=== PATIENT | male | born 1980 | race Hispanic/Latino ===

== ENCOUNTER 2018-04-06 18:18 | Inpatient (IN) | payer OTHER, SELFPAY ==
[2018-04-06] MEDS ORDERED: NA CHLORIDE 0.9% 2,000 ML ONE (19:25)
[2018-04-06 19:51] LABS: Albumin 4.3 g/dL (3.4-5.0); Bilirubin Direct 0.4 mg/dL (0-0.2); Potassium 4.2 mmol/L (3.5-5.1); Protein, Total 9.2 g/dL (6.4-8.2)
[2018-04-06 20:15] LABS: Absolute Lymphocytes (CBC) 1.8 K/uL (0.7-4.9); Absolute Monocytes 0.7 K/uL (0.1-1.3); Absolute Neutrophil 7.1 K/uL (1.8-8.0); Basophils % 0.3 % (0-1.3); Eosinophils % 0.9 % (0-4.4); Hematocrit 46.6 % (39.6-49.0); Lymphocytes % 18.5 % (15.3-44.8); MCH 28.6 pg (27.0-35.0); MCV 84.9 fL (80-100); MPV 10.9 fL (7.6-11.3); Monocytes % 7.6 % (3.3-12.3); RBC Red Blood Cell Count 5.49 M/uL (4.33-5.43)
--- NOTE | 2018-04-06 20:21 | EDPHYS ---
Physician Documentation [facility] Name: James Gibson Age: 37 yrs Sex: Male : 1980 Arrival Date: 04/06/2018 Time: 18:23 Bed 25 Private MD: Unknown, Unknown ED Physician Jairo Beckham HPI: 04/06 19:33 This 37 yrs old Male presents to ER via Ambulatory with complaints of gs Dehydration. 19:33 The patient presents with CRAMPING. Onset: The symptoms/episode began/occurred acutely, gs today. Associated signs and symptoms: Pertinent positives: nausea and vomiting, HEAT EXPOSURE, Pertinent negatives: anorexia. The symptoms are described as crampy. Modifying factors: The symptoms are alleviated by nothing, the symptoms are aggravated by nothing. Severity of pain: At its worst the pain was mild in the emergency department the pain is unchanged. The patient has experienced similar episodes in the past, a few times. The patient has been recently seen by a physician: in the hospital, 2 week(s) ago. Historical: - Allergies: 18:33 No Known Allergies; sv - PMHx: 18:33 Diabetes - IDDM; High Cholesterol; sv - PSHx: 18:33 Cholecystectomy; sv - Immunization history:: Adult Immunizations up to date. - Social history:: Smoking status: Patient/guardian denies using tobacco. - Ebola Screening: : No symptoms or risks identified at this time. ROS: 19:33 All other systems are negative. gs Exam: 19:33 Head/Face: Normocephalic, atraumatic. Eyes: Pupils equal round and reactive to light, gs extra-ocular motions intact. Lids and lashes normal. Conjunctiva and sclera are non-icteric and not injected. Cornea within normal limits. Periorbital areas with no swelling, redness, or edema. ENT: Nares patent. No nasal discharge, no septal abnormalities noted. Tympanic membranes are normal and external auditory canals are clear. Oropharynx with no redness, swelling, or masses, exudates, or evidence of obstruction, uvula midline. Mucous membranes moist. Neck: Trachea midline, no thyromegaly or masses palpated, and no cervical lymphadenopathy. Supple, full range of motion without nuchal rigidity, or vertebral point tenderness. No Meningismus. Chest/axilla: Normal chest wall appearance and motion. Nontender with no deformity. No lesions are appreciated. Respiratory: Lungs have equal breath sounds bilaterally, clear to auscultation and percussion. No rales, rhonchi or wheezes noted. No increased work of breathing, no retractions or nasal flaring. Back: No spinal tenderness. No costovertebral tenderness. Full range of motion. Skin: Warm, dry with normal turgor. Normal color with no rashes, no lesions, and no evidence of cellulitis. MS/ Extremity: Pulses equal, no cyanosis. Neurovascular intact. Full, normal range of motion. Neuro: Awake and alert, GCS 15, oriented to person, place, time, and situation. Cranial nerves II-XII grossly intact. Motor strength 5/5 in all extremities. Sensory grossly intact. Cerebellar exam normal. Normal gait. 19:33 Constitutional: The patient appears alert, awake. 19:33 Cardiovascular: Rate: tachycardic, Rhythm: regular, Pulses: no pulse deficits are appreciated. 19:33 Abdomen/GI: Palpation: mild abdominal tenderness, in all quadrants, rebound tenderness, is not appreciated. Vital Signs: 18:32 BP 125 / 91; Pulse 123; Resp 20; Temp 98.1(O); Pulse Ox 97% on R/A; Height 5 ft. 7 in. sv (170.18 cm); Pain 8/10; 19:42 BP 127 / 91; Pulse 99; Resp 16; Pulse Ox 100% ; kr2 21:37 BP 132 / 84; Pulse 102; Resp 17; Pulse Ox 97% on R/A; kr2 MDM: 18:57 Patient medically screened. 19:33 Differential diagnosis: non-specific abd pain, pancreatitis, DEHYDRATION,RHABDO. Data reviewed: vital signs, nurses notes. 04/06 18:58 Order name: Basic Metabolic Panel; Complete Time: 19:57 04/06 18:58 Order name: CBC with Diff; Complete Time: 20:44 04/06 18:58 Order name: Hepatic Function; Complete Time: 19:57 04/06 18:58 Order name: Lipase; Complete Time: 19:57 04/06 18:58 Order name: CPK; Complete Time: 19:57 04/06 21:37 Order name: Urine Dipstick--Ancillary (enter results) hi 04/06 18:58 Order name: IV Saline Lock; Complete Time: 19:25 04/06 18:58 Order name: Labs collected and sent; Complete Time: 19:26 04/06 18:58 Order name: Urine Dipstick-Ancillary (obtain specimen); Complete Time: 21:41 04/06 20:06 Order name: CT Stone Protocol; Complete Time: 20:44 04/06 21:52 Order name: Urine Dipstick-Ancillary [facility] 04/06 22:04 Order name: Lipid Profile [facility] 04/06 22:16 Order name: LDL, Direct EDMS Administered Medications: 19:25 Drug: NS 0.9% 2000 ml Route: IV; Rate: 1 bolus; Site: left wrist; kr2 21:40 Follow up: Response: No adverse reaction; IV Status: Completed infusion kr2 Disposition: 04/06/18 20:20 Hospitalization ordered by Noah Gotti for Inpatient Admission. Preliminary diagnosis is Acute pancreatitis. - Bed requested for Telemetry/MedSurg (Inpatient). - Status is Inpatient Admission. kr2 - Condition is Stable. - Problem is new. - Symptoms have improved. UTI on Admission? No Signatures: Dispatcher [facility] Shwetha Milan RN RN Debi Page RN RN Jairo Beckham MD MD Eva Esquivel RN RN kr2 Corrections: (The following items were deleted from the chart) 20:26 20:20 Hospitalization Ordered by Noah Gotti MD for Inpatient Admission. Preliminary diagnosis is Acute pancreatitis. Bed requested for Telemetry/MedSurg (Inpatient). Status is Inpatient Admission. Condition is Stable. Problem is new. Symptoms have improved. UTI on Admission? No. 22:18 20:26 04/06/2018 20:20 Hospitalization Ordered by Noah Gotti MD for Inpatient kr2 Admission. Preliminary diagnosis is Acute pancreatitis. Bed requested for Telemetry/MedSurg (Inpatient). Status is Inpatient Admission. Condition is Stable. Problem is new. Symptoms have improved. UTI on Admission? No. mw
--- NOTE | 2018-04-06 20:21 | ER ---
Nurse's Notes [facility] Name: James Gibson Age: 37 yrs Sex: Male : 1980 Arrival Date: 04/06/2018 Time: 18:23 Bed 25 Private MD: Unknown, Unknown Diagnosis: Acute pancreatitis Presentation: 04/06 18:29 Presenting complaint: Patient states: he was discharged from the hospital with sv pancreatitis . Pt was drinking fluids fine and has since been unable to keep any fluids down. c/o cramping everywhere. Transition of care: patient was not received from another setting of care. Onset of symptoms was April 02, 2018. Care prior to arrival: None. 18:29 Method Of Arrival: Ambulatory sv 18:29 Acuity: MARVEL 3 sv 18:47 Risk Assessment: Do you want to hurt yourself or someone else? Patient reports no kr2 desire to harm self or others. Initial Sepsis Screen: Does the patient meet any 2 criteria? No. Patient's initial sepsis screen is negative. Does the patient have a suspected source of infection? No. Patient's initial sepsis screen is negative. Historical: - Allergies: 18:33 No Known Allergies; sv - PMHx: 18:33 Diabetes - IDDM; High Cholesterol; sv - PSHx: 18:33 Cholecystectomy; sv - Immunization history:: Adult Immunizations up to date. - Social history:: Smoking status: Patient/guardian denies using tobacco. - Ebola Screening: : No symptoms or risks identified at this time. Screenin:47 Abuse screen: Denies threats or abuse. Denies injuries from another. Nutritional kr2 screening: No deficits noted. Tuberculosis screening: No symptoms or risk factors identified. Fall Risk None identified. Assessment: 18:35 General: Appears in no apparent distress. uncomfortable, well groomed, well developed, kr2 well nourished, Behavior is calm, cooperative, appropriate for age. Pain: Complains of pain in entire body Pain currently is 6 out of 10 on a pain scale. Quality of pain is described as crampy, Is continuous, Alleviated by rest, Aggravated by increased activity. Neuro: Level of Consciousness is awake, alert, obeys commands, Oriented to person, place, time, situation. Cardiovascular: Heart tones S1 S2 Capillary refill < 3 seconds in bilateral fingers Patient's skin is warm and dry. Respiratory: Airway is patent is compromised Respiratory effort is even, unlabored. GI: Abdomen is flat, non-distended, Bowel sounds present X 4 quads. Abd is soft X 4 quads Abdomen is tender to palpation in epigastric area, right upper quadrant and left upper quadrant Reports intolerance of fluids, intolerance of food, nausea, vomiting. : Denies inability to void. EENT: Oral mucosa is dry. Derm: Skin is intact, with poor turgor Skin is dry, Skin is pale, pink, Skin temperature is warm. Musculoskeletal: Circulation, motion, and sensation intact. Vital Signs: 18:32 BP 125 / 91; Pulse 123; Resp 20; Temp 98.1(O); Pulse Ox 97% on R/A; Height 5 ft. 7 in. sv (170.18 cm); Pain 8/10; 19:42 BP 127 / 91; Pulse 99; Resp 16; Pulse Ox 100% ; kr2 21:37 BP 132 / 84; Pulse 102; Resp 17; Pulse Ox 97% on R/A; kr2 ED Course: 18:23 Patient arrived in ED. mr 18:23 Unknown, Unknown is Private Physician. mr 18:32 Triage completed. sv 18:33 Arm band placed on right wrist. sv 18:38 Jairo Beckham MD is Attending Physician. gs 18:47 Eva Esquivel, KT is Primary Nurse. kr2 18:48 Patient has correct armband on for positive identification. Bed in low position. Call kr2 light in reach. Side rails up X 1. Pulse ox on. NIBP on. Door closed. Warm blanket given. Head of bed elevated. 19:15 Inserted saline lock: 22 gauge in left wrist, using aseptic technique. kr2 20:[address] vr 20:17 CT Stone Protocol In Process Unspecified. EDMS 20:17 CT completed. Patient tolerated procedure well. Patient moved back from CT. nj 20:19 Noah Gotti MD is Hospitalizing Provider. gs 22:17 No provider procedures requiring assistance completed. Patient admitted, IV remains in kr2 place. Administered Medications: 19:25 Drug: NS 0.9% 2000 ml Route: IV; Rate: 1 bolus; Site: left wrist; kr2 21:40 Follow up: Response: No adverse reaction; IV Status: Completed infusion kr2 Outcome: 20:20 Decision to Hospitalize by Provider. 22:17 Admitted to Med/surg accompanied by tech, family with patient, via wheelchair, room kr2 209, with chart, Report called to KT Montgomery 22:17 Condition: stable 22:17 Instructed on the need for admit, Demonstrated understanding of instructions. 22:18 Patient left the ED. kr2 Signatures: Dispatcher [employer] EDShwetha Nunez RN RN sv Rivera, Maria mr Dong, Lorenzo Chase Gregory, MD MD gs Reaves, Karey, RN RN kr2 Corrections: (The following items were deleted from the chart) 18:34 18:32 BP 125 / 91; Pulse 123bpm; Resp 20bpm; Pulse Ox 97% RA; sv sv
--- NOTE | 2018-04-06 20:40 | RAD REPORT ---
EXAM DESCRIPTION: CT - Stone Protocol - 04/06/2018 8:18 pm CLINICAL HISTORY: Abdominal pain, recent hospitalization for pancreatitis COMPARISON: CT study January 24 no imaging related to recent hospitalization which may have been at [facility] facility. TECHNIQUE: Axial [address] imaging of the abdomen and pelvis was performed without IV contrast. No IV contrast was given because of allergy, abnormal renal function, patient refusal or physician re quest. Oral contrast was given. All CT scans are performed using dose optimization technique as appropriate and may include automated exposure control or mA/KV adjustment according to patient size. FINDINGS: No suspicious findings in the lung bases. No pericardial effusion. Liver and spleen show no suspicious finding. Pneumobilia is present without dilatation. Cholecystecto my clips are present. Head and uncinate process of the pancreas are enlarged. No discrete mass identifiable on noncontrast study. Biliary stent is in place and appears to be well positioned. No abscess or pseudocyst confirme d at this time. Peripancreatic congestion and edema are present at the head and uncinate process. A f ew small reactive lymph nodes are seen in the upper abdomen and peripancreatic region. No hydronephrosis or suspicious renal mass. No significant adrenal finding. Isodense renal masses an d pyelonephritis cannot be excluded in the absence of IV contrast. The urinary bladder is without sig nificant finding. Note gastric dilatation or gastric wall thickening. There does appear to be some mild involvement of the duodenal C-loop by the pancreatitis changes. Small bowel and colon are otherwise without acute or significant finding. No free air, free fluid or pneumatosis. No hernia, mass or bulky lymphadenopath y. No suspicious bony findings. IMPRESSION: Mild pancreatitis changes are present. No abscess or pseudocyst identifiable. Biliary stent is in place appearing well positioned. General fullness and enlargement of the uncinate and head of the pancreas are probably pancreatitis r elated rather than mass. Pancreatic assessment is limited in the absence of contrast. No recent imaging available to determine if the pancreatitis changes are progressive, stable or impro ving.
--- NOTE | 2018-04-06 21:34 | P.HP ---
Certification for Inpatient Patient admitted to: Inpatient With expected LOS: >2 Midnights Practitioner: I am a practitioner with admitting privileges, knowledge of patient current condition, hospital course, and medical plan of care. Services: Services provided to patient in accordance with Admission requirements found in Title 42 Section 412.3 of the Code of Federal Regulations Patient History Date of Service: 04/06/18 Reason for admission: recurrent pancreatitis History of Present Illness: Mr Gibson is a 37 years old male with history of DM II on oral hypoglycemics , recurrent episodes of pancreatitis due to hypertriglyceridemia, last admission in [facility] about 2 weeks ago, he states that had an ERCP with a stent placement, however, no biliary stone noted on radiologic test according to him. He was released about 5 days ago, and he was not really feeling completely well. Yesterday he start again with upper abdominal pain, described as cramps, in epigastric area radiated to bilateral upper quadrant. 10 /10 of intensity, associated with nausea and vomiting. He denied fever but has had chills. He states that is compliant with Gemfibrozil treatment. Lab work remarkable for normal WBC count, decreased sodium, chloride and increased creatinine likely secondary to volume depletion. Lipase is 814, CT abd/pelvis consitent with acute pancreatitis without pseudocyst or abscess seen. Allergies No Known Drug Allergies Allergy (Verified 01/28/15 21:17) Unknown Home Medications: Gemfibrozil [Lopid*] 600 mg PO BID #60 tab 02/01/15 Hydrocodone 10/APAP 325 [Rosine 10/325] 1 tab PO Q6H PRN #60 tab 02/01/15 [place]-3 Fatty Acids/Fish Oil [Fish Oil 1,000 mg Softgel] 1 each PO BID #60 capsule 02/01/15 - Past Medical/Surgical History Diabetic: Yes -: niddm -: htn -: pancreatitis -: janet -: ERCP - Family History Mother -: Hypertension - Social History Smoking Status: Former smoker Alcohol use: Yes CD- Drugs: No Caffeine use: Yes Review of Systems 10-point ROS is otherwise unremarkable Physical Examination - Physical Exam General: Alert, In no apparent distress HEENT: Atraumatic, PERRLA, Mucous membr. moist/pink, EOMI, Sclerae nonicteric Neck: Supple, 2+ carotid pulse no bruit, No LAD, Without JVD or thyroid abnormality Respiratory: Clear to auscultation bilaterally, Normal air movement Cardiovascular: Regular rate/rhythm, Normal S1 S2 Gastrointestinal: Hypoactive, Tenderness (upper abdomen) Musculoskeletal: No tenderness Integumentary: No rashes Neurological: Normal speech, Normal strength at 5/5 x4 extr, Normal tone, Normal affect Lymphatics: No axilla or inguinal lymphadenopathy - Studies Laboratory Data (last 24 hrs) 04/06/18 19:20: WBC 9.7, Hgb 15.7, Hct 46.6, Plt Count 357 04/06/18 19:20: Sodium 128 L, Potassium 4.2, BUN 26 H, Creatinine 2.10 H, Glucose 344 H, Total Bilirubin 1.0, AST 34, ALT 51, Alkaline Phosphatase 164 H, Lipase 814 H Assessment and Plan - Problems (Diagnosis) (1) Diabetes mellitus Onset Date: 01/29/15 Current Visit: No Status: Acute Qualifiers: Diabetes mellitus type: type 2 Diabetes mellitus fci insulin use: without fci use Diabetes mellitus complication status: with unspecified complications Qualified Code(s): E11.8 - Type 2 diabetes mellitus with unspecified complications (2) Hypochloremia Onset Date: 01/29/15 Current Visit: No Status: Acute (3) Hyponatremia Onset Date: 01/29/15 Current Visit: No Status: Acute (4) Pancreatitis Onset Date: 01/29/15 Current Visit: No Status: Acute Qualifiers: Chronicity: acute Pancreatitis type: other Acute pancreatitis complication: no infection or necrosis Qualified Code(s): K85.80 - Other acute pancreatitis without necrosis or infection (5) Acute renal injury Current Visit: Yes Status: Acute - Plan The patient will be admitted to the hospital due to acute pancreatitis. Will keep him NPO, start IV fluids, will check triglycerides level, if they are significantly elevated, will transfer the patient to ICU and start insulin drip. Consult Dr Barnes. Will order records from last admission at [facility] to find out about ERCP with stent placement details. Discharge Plan: Home - Advance Directives Does patient have a Living Will: No Does patient have a Durable POA for Healthcare: No - Code Status/Comfort Care Code Status Assessed: Yes Code Status: Full Code
[2018-04-06 21:52] LABS: Urine Blood NEGATIVE (NEG); Urine Glucose 2+ (NEG); Urine Protein 1+ (NEG)
[2018-04-06 22:03] LABS: HDL Cholesterol 28 mg/dL (40-60); LDL Cholesterol, Calculated ND (<130)
[2018-04-06 22:15] LABS: LDL, Direct 86 mg/dL (100-129)
[2018-04-06] MEDS ORDERED: Morphine 2 MG/2 ML SYR IV PRN (22:19)
[2018-04-06] MEDS ORDERED: ACETAMINOPHEN 500 MG TAB PO PRN (22:19)
[2018-04-06] MEDS ORDERED: ONDANSETRON 4 MG/2 ML VIAL IV PRN (22:19)
[2018-04-06 22:34] VITALS: BMI 35.8
[2018-04-06] MEDS: NA CHLORIDE 0.9% 1,000 ML IV SCH (22:55)
[2018-04-06] MEDS: MORPHINE 2 MG/ML SYR IV PRN (22:58)
[2018-04-07] MEDS: INSULIN -REGULAR HUMAN 50 UNIT/0.5 ML ML SQ SCH ×4 (00:26→18:00)
[2018-04-07 04:55] LABS: Absolute Lymphocytes (CBC) 2.3 K/uL (0.7-4.9); Absolute Monocytes 0.6 K/uL (0.1-1.3); Absolute Neutrophil 2.2 K/uL (1.8-8.0); Basophils % 0.7 % (0-1.3); Eosinophils % 2.6 % (0-4.4); Hematocrit 38.8 % (39.6-49.0); Lymphocytes % 43.7 % (15.3-44.8); MCH 29.5 pg (27.0-35.0); MCV 85.3 fL (80-100); MPV 10.3 fL (7.6-11.3); Monocytes % 10.9 % (3.3-12.3); RBC Red Blood Cell Count 4.55 M/uL (4.33-5.43)
[2018-04-07 05:19] LABS: Albumin 3.4 g/dL (3.4-5.0); Bilirubin Total 0.9 mg/dL (0.2-1.0); Potassium 4.5 mmol/L (3.5-5.1); Protein, Total 7.2 g/dL (6.4-8.2)
[2018-04-07] MEDS: NA CHLORIDE 0.9% 1,000 ML IV SCH ×4 (05:52→22:42)
[2018-04-07] MEDS: MORPHINE 2 MG/ML SYR IV PRN ×3 (05:55→22:42)
[2018-04-07] MEDS ORDERED: Magnesium Sulfate 2gm IVPB 2 G/50 ML BAG IV ONE (06:02)
--- NOTE | 2018-04-07 08:40 | RAD REPORT ---
EXAM DESCRIPTION: US - Abdomen Exam Limited - 04/07/2018 8:06 am CLINICAL HISTORY: Abdominal pain. COMPARISON: April 06, 2018 FINDINGS: The liver has a mildly increased echotexture consistent with fatty infiltration. The gallbladder has been removed. A biliary stent is in place. The biliary tree is not dilated. Withi n the region of the pancreatic head is a 4 centimeter hypoechoic mass. IMPRESSION: Mild increased hepatic echotexture consistent with mild fatty infiltration Cholecystectomy with biliary stent in place 4 centimeter hypoechoic mass within the pancreatic head may be inflammatory secondary to pancreatitis . Neoplasm has a similar appearance and followup is recommended
[2018-04-07] MEDS: ENOXAPARIN 40 MG/0.4 ML SQ SCH (09:00)
--- NOTE | 2018-04-07 14:14 | PN ---
Date of Progress Note: 04/07/2018 Subjective: The patient is seen and examine. Chart reviewed and case discussed with RN. The patien t states he is still having significant amount of pain and very much nauseated. Review of Systems: Negative except as above. Medications: Reviewed. Physical Examination: Vital Signs: Temperature 97.3, heart rate 66, blood pressure 122/67, respirations 18, O2 sat 96% on room air. General: Awake, alert, oriented x3. Some mild distress due to pain. Ill-appearing male. CV: S1, S2. No murmurs. Regular rate and rhythm. Peripheral pulses present. Respiratory: Clear to auscultation bilaterally. No wheezing. No stridor. No use of accessory musc les. Gastrointestinal: Abdomen is soft. Tenderness to palpation in the epigastric region in the right up per quadrant. No guarding or rigidity. No palpable masses. Bowel sounds are positive. Extremities: No clubbing, cyanosis, edema. Neurologic: Nonfocal. Laboratory Data: Sodium 137, potassium 4.5, chloride 100, CO2 29, BUN 18, creatinine 1.2, glucose 21 5, calcium 9.1, magnesium 1.5, total bilirubin 0.9, albumin 3.4, triglycerides 866. WBC 5.2, H and H 13.4 and 38.8, platelets 275. Abdominal ultrasound shows mild increased hepatic echotexture consist ent with mild fatty infiltration, cholecystectomy with biliary stent in place, 4 cm hypoechoic mass w ithin the pancreatic head may be inflammatory secondary to pancreatitis. Followup is recommended. Assessment And Plan: A 37-year-old male with: 1.Acute pancreatitis, likely related to elevated triglycerides and alcohol use. The patient was rec ently at a facility in [place], had an ERCP with stent placement. We will obtain GI consultation. 2.Diabetes mellitus type 2 without long-term use of insulin with hyperglycemia. We will continue sl iding scale insulin and continue Accu-Cheks. 3.Hyponatremia, resolved. We will continue to monitor. 4.Hypokalemia, improving. Continue to monitor. 5.Acute kidney injury, resolved with IV hydration. We will continue IV fluids. 6.Gastrointestinal and deep venous thrombosis prophylaxis with PPI and Lovenox. Plan: N.p.o., supportive treatment, pain control, follow up with GI recommendations. SA/MODL Voice ID: [id number] Report ID: [id number]
[2018-04-07] MEDS ORDERED: D50W 25 GM/50 ML SYRINGE IV PRN (18:51)
[2018-04-07] MEDS ORDERED: GLUCAGON 1 MG/VIAL IM PRN (18:51)
[2018-04-07] MEDS ORDERED: MEPERIDINE HCL 25 MG/0.5 ML IV ONE (19:00)
[2018-04-07] MEDS ORDERED: MAGNESIUM SULFATE 1 gm IVPB 1 GM/100 ML BAG IV ONE (20:00)
[2018-04-07] MEDS: FENOFIBRATE 160 MG TAB PO SCH (20:07)
[2018-04-08] MEDS: NA CHLORIDE 0.9% 1,000 ML IV SCH ×3 (05:12→22:19)
[2018-04-08] MEDS: MORPHINE 2 MG/ML SYR IV PRN ×2 (05:12→10:46)
[2018-04-08 05:26] LABS: BUN Blood Urea Nitrogen 12 mg/dL (7-18); Bicarbonate 31 mmol/L (21-32); Glucose Level 175 mg/dL (74-106); Potassium 4.2 mmol/L (3.5-5.1); Sodium Level 137 mmol/L (136-145)
[2018-04-08 05:27] LABS: Magnesium 1.7 mg/dL (1.8-2.4)
[2018-04-08] MEDS: INSULIN -REGULAR HUMAN 50 UNIT/0.5 ML ML SQ SCH ×4 (05:46→18:00)
[2018-04-08] MEDS ORDERED: MAGNESIUM SULFATE 1 gm IVPB 1 GM/100 ML BAG IV ONE (06:00)
[2018-04-08] MEDS: ENOXAPARIN 40 MG/0.4 ML SQ SCH (08:40)
[2018-04-08 09:08] LABS: Amylase Level 64 U/L (25-115); Lipase 437 U/L (73-393)
--- NOTE | 2018-04-08 11:01 | PN ---
Date of Progress Note: 04/08/2018 Subjective: The patient is seen and examined. Chart reviewed and case discussed with RN. The patie nt states his pain is better, however, not completely resolved. No nausea or vomiting. Review of Systems: Negative except as above. Medications: Reviewed. Physical Examination: Vital Signs: Temperature 97.8, heart rate 56, blood pressure 120/65, respirations 18, O2 96% on room air. General: Awake, alert, oriented x3. Some mild distress. Obese male, BMI 34.8. CV: S1, S2. No murmurs. Regular rate and rhythm. Peripheral pulses present. Respiratory: Clear to auscultation bilaterally. No wheezing. Gastrointestinal: Abdomen is soft. Mild tenderness to palpation in the epigastric region. No rebou nd or guarding. No rigidity. Bowel sounds positive. Extremities: No clubbing, cyanosis, edema. Neurologic: Nonfocal. Laboratory Data: Sodium 137, potassium 4.2, chloride 102, CO2 31, BUN 12, creatinine 0.9, glucose 17 5, calcium 8.7, magnesium 1.7. Amylase and lipase pending. Abdominal ultrasound shows mild increase d hepatic echotexture consistent with mild fatty infiltration, cholecystectomy with biliary stent in place, 4 cm hypoechoic mass within the pancreatic head, may be inflammatory secondary to pancreatitis . Assessment And Plan: A 37-year-old male with: 1.Acute pancreatitis secondary to elevated triglycerides and alcohol use. Recent ERCP at different facility with stent placement. Awaiting GI recommendations. 2.Diabetes mellitus type 2 with long-term use of insulin with hyperglycemia. We will continue slidi ng scale insulin. 3.Hypomagnesemia. We will replace and monitor. 4.Obesity, BMI 34.8, counseled. 5.Possible pancreatic mass 4 cm, may be inflammatory. We will continue to monitor. Follow up with GI recommendations. /FREDDY Voice ID: [id number] Report ID: [id number]
[2018-04-08] MEDS: MEPERIDINE HCL 25 MG/0.5 ML IV PRN ×3 (14:03→22:07)
[2018-04-08] MEDS: FENOFIBRATE 160 MG TAB PO SCH (22:08)
[2018-04-08 23:07] VITALS: O2SAT 98
[2018-04-09] MEDS: MEPERIDINE HCL 25 MG/0.5 ML IV PRN ×4 (02:58→16:51)
[2018-04-09] MEDS: NA CHLORIDE 0.9% 1,000 ML IV SCH ×4 (02:58→14:19)
[2018-04-09] MEDS: INSULIN -REGULAR HUMAN 50 UNIT/0.5 ML ML SQ SCH ×4 (06:00→16:49)
[2018-04-09 06:32] LABS: Amylase Level 61 U/L (25-115); BUN Blood Urea Nitrogen 7 mg/dL (7-18); Bicarbonate 28 mmol/L (21-32); Glucose Level 178 mg/dL (74-106); Lipase 350 U/L (73-393); Potassium 4.4 mmol/L (3.5-5.1); Sodium Level 140 mmol/L (136-145)
[2018-04-09 06:38] LABS: Magnesium 1.4 mg/dL (1.8-2.4)
[2018-04-09] MEDS ORDERED: Magnesium Sulfate 2gm IVPB 2 G/50 ML BAG IV ONE (08:00)
[2018-04-09] MEDS: ENOXAPARIN 40 MG/0.4 ML SQ SCH (09:14)
[2018-04-09 18:24] VITALS: BP 122/76; TEMP 98.6
--- NOTE | 2018-04-10 07:07 | DS ---
Date of Discharge: 04/09/2018 Consultants: Lázaro Dodge MD with GI. Admitting Diagnoses: 1.Acute pancreatitis, recurrent, secondary to alcohol and elevated triglycerides. 2.Obesity, BMI of 34.8. 3.Diabetes mellitus type 2 without long-term use of insulin. 4.Hypochloremia. 5.Hyponatremia. 6.Acute kidney injury. Discharge Diagnoses: 1.Acute pancreatitis, secondary to alcohol and elevated triglycerides. The patient had recent ERCP with stent placement. 2.Diabetes mellitus type 2 with long-term use of insulin with hyperglycemia. 3.Hypomagnesemia, replaced. 4.Hypochloremia, corrected. 5.Obesity, BMI of 34.8. 6.Fatty infiltration of the liver, counseled. 7.Acute kidney injury, resolved. 8.Hyponatremia, resolved. 9.Hyperlipidemia. 10.Statin. Hospital Course: The patient is a 37-year-old male with history of diabetes, comes in with recurrent pancreatitis. The patient was found to have hypertriglyceridemia, history of alcohol use, had recen t stent placement, and after ERCP, CT scan was done which showed some pancreatic inflammation along w ith some congestion edema around the head of the uncinate process, was also found to have fatty liver disease. The patient was kept n.p.o., started on IV fluids. His pain was controlled with IV medica tions. Workup showed triglyceride levels of 866. His lipase was elevated at 814. The patient slowl y improved. His pain resolved. He was started on a clear liquid diet, which was able to resolve. Vanessa mendez was then eventually able to tolerate a GI soft diet. He was seen by GI who did not feel that the u ltrasound finding of mass was accurate. A CT scan, which is much more reliable in imaging for the [facility], does not show any masses, however, we will recommend repeat imaging study in 36 months. The patient otherwise had improvement in his electrolytes. His magnesium, potassium, chloride, sodium we re replaced. He was counseled on his fatty liver disease, which can lead to liver cirrhosis in 20 un clear if untreated. He is to have diet modification. The patient also needs to follow up with GI do ctor at [place] or here locally for removal of the biliary stent. The patient was then cleared for discharge. He was sent home in a fair condition. Activity: As tolerated. Medications: As per medication reconciliation list. Followup: Follow up with primary care physician in 2-3 days. Follow up with GI doctor in 2 weeks. Return to ER for worsening condition. Physical Examination: General: Awake, alert, and oriented x3. No acute distress. Obese male. CV: S1, S2. No murmurs. Gastrointestinal: Abdomen is soft, nontender, and nondistended. Positive bowel sounds. Respiratory: Moving air well bilaterally. No wheezing. Abdomen: Soft, nontender, and nondistended. Positive bowel sounds. Extremities: No clubbing, cyanosis, or edema. Neurologic: Nonfocal. Total time spent discharging the patient was 37 minutes. /FREDDY Voice ID: [id number] Report ID: [id number]
== END 2018-04-09 18:13 | disposition home or self-care (01) | DRG 439 ==
LOC: ER 18:18 → ERHOLD 20:22 → 2ND 21:31
PROVIDERS: ADMIT Internal Medicine; ATTEND Internal Medicine
DX: K85.20 Alcohol induced acute pancreatitis without necrosis or infection (principal); N17.9 Acute kidney failure, unspecified; E87.1 Hypo-osmolality and hyponatremia; E83.42 Hypomagnesemia; E11.65 Type 2 diabetes mellitus with hyperglycemia; Z79.4 Long term (current) use of insulin; E87.8 Other disorders of electrolyte and fluid balance, not elsewhere classified; E66.9 Obesity, unspecified; Z68.34 Body mass index [BMI] 34.0-34.9, adult; K76.0 Fatty (change of) liver, not elsewhere classified; E78.5 Hyperlipidemia, unspecified; E78.1 Pure hyperglyceridemia
CPT/HCPCS: 36415; 74176; 76377; 76705; 80048; 80053; 80061; 80076; 81003; 82150; 82550; 82962; 83690; 83735; 85025; 87493; 96360; 96361; 99285; J1650; J2175; J2270; J3475; J7030

== ENCOUNTER 2018-04-12 07:06 | Emergency (ER) | payer OTHER ==
[2018-04-12] MEDS ORDERED: ONDANSETRON 4 MG/2 ML VIAL ONE (07:55)
[2018-04-12] MEDS ORDERED: NA CHLORIDE 0.9% 1,000 ML ONE (07:55)
[2018-04-12] MEDS ORDERED: MORPHINE 4 MG/ML SYR ONE (07:55)
[2018-04-12 08:00] LABS: Absolute Monocytes 0.9 K/uL (0.1-1.3); Absolute Neutrophil 7.9 K/uL (1.8-8.0); Basophils % 0.2 % (0-1.3); Eosinophils % 0.5 % (0-4.4); Hematocrit 37.7 % (39.6-49.0); Lymphocytes % 10.5 % (15.3-44.8); MCH 28.5 pg (27.0-35.0); MCV 85.5 fL (80-100); MPV 11.6 fL (7.6-11.3); Monocytes % 8.7 % (3.3-12.3); RBC Red Blood Cell Count 4.41 M/uL (4.33-5.43)
[2018-04-12 08:16] LABS: Urine Amorphous Sediment 1+ /HPF (NONE SEEN); Urine Bacteria <20 /HPF (NONE SEEN); Urine Coarse Granular Casts FEW /LPF (NONE SEEN); Urine Culture Reflex Order REFLEXED; Urine Mucus 1+ /HPF (NONE SEEN); Urine RBC <5 /HPF (NONE SEEN)
[2018-04-12 08:17] LABS: Urine Blood NEGATIVE (NEG); Urine Glucose TRACE (NEG); Urine Protein 2+ (NEG); Urine Specific Gravity >1.030 (1.005-1.030); Urine pH 5.5 (5.0-7.0)
[2018-04-12 08:23] LABS: ALT/SGPT 30 U/L (12-78); AST/SGOT 25 U/L (15-37); Alkaline Phosphatase 224 U/L (45-117); Amylase Level 46 U/L (25-115); BUN Blood Urea Nitrogen 8 mg/dL (7-18); Bicarbonate 27 mmol/L (21-32); Bilirubin Direct 0.7 mg/dL (0-0.2); Bilirubin Total 1.5 mg/dL (0.2-1.0); Glucose Level 187 mg/dL (74-106); Lipase 199 U/L (73-393); Potassium 3.7 mmol/L (3.5-5.1); Protein, Total 7.9 g/dL (6.4-8.2); Sodium Level 135 mmol/L (136-145)
--- NOTE | 2018-04-12 08:48 | RAD REPORT ---
EXAM DESCRIPTION: CT - Abdomen Pelvis W Contrast - 04/12/2018 8:15 am CLINICAL HISTORY: Abdominal pain, prior cholecystectomy, recent hospitalization for pancreatitis COMPARISON: CT April 06 TECHNIQUE: Biphasic, helical CT imaging of the abdomen and pelvis was performed following 100 ml non -ionic IV contrast. No oral contrast administered. All CT scans are performed using dose optimization technique as appropriate and may include automated exposure control or mA/KV adjustment according to patient size. FINDINGS: No suspicious findings in the lung bases. Liver and spleen show no acute parenchymal findings. Body and tail of the pancreas show no significan t finding or interval change. The head and uncinate process of the pancreas are abnormal with enlarge ment, edema and now presents of multiple clustered hypodense masses. This is approximately 6 x 5 cm a nd collective size. Biliary stent is in place. No intrahepatic biliary tree dilatation seen. The conf luence of the biliary tree into the common hepatic duct is mildly prominent but not clearly different from the comparison. Biliary stent remains in place. The duodenal C-loop is difficult to distinguish from this pancreatic head complex mass. Of the reactive lymph nodes are present in the adjacent john pancreatic fatty tissues. Gallbladder is absent. Symmetric renal function is seen with no hydronephrosis or suspicious renal mass. No acute renal pare nchymal process. Contracted urinary bladder shows no suspicious findings. No gastric dilatation. [place] of the gastric antrum are mildly prominent. Ileum and jejunum show no ac [place] findings. No active colon process. No free air or pneumatosis. No surgically emergent finding. No hernia, mass or bulky lymphadenopathy . No adrenal abnormality. No suspicious bony findings. IMPRESSION: Pancreatic head and uncinate process are abnormal. There are remnant pancreatitis findin gs present. A 6 x 5 cm area of diminished attenuation has developed in the pancreatic head region believed to be a collection of multiple pancreatic pseudocysts. Duodenal C-loop is secondarily involved with possible minimal secondary involvement of the gastric an trum. There is no good tissue plane separation between the pancreatitis/ pseudo cyst complex and the duodenum. Biliary stent is unchanged in position. Minimal prominence of the biliary tree at the confluence of c ommon hepatic duct and intrahepatic branches is not substantially different but can be monitored for progression.
[2018-04-12] MEDS ORDERED: FENTANYL CITR 100 MCG/2 ML ONE (10:30)
--- NOTE | 2018-04-12 10:59 | ER ---
Nurse's Notes [facility] Name: James Gibson Age: 37 yrs Sex: Male : 1980 Arrival Date: 04/12/2018 Time: 07:09 Bed 20 Private MD: Unknown, Unknown Diagnosis: Epigastric pain Presentation: 04/12 07:19 Presenting complaint: Patient states: was admitted to hospital on 04-06-18 for iw pancreatitis, was discharged on 04-09-18, was still having pain, still having pain now, denies n/v/d. Transition of care: patient was not received from another setting of care. Onset of symptoms was April 06, 2018. Risk Assessment: Do you want to hurt yourself or someone else? Patient reports no desire to harm self or others. Initial Sepsis Screen: Does the patient meet any 2 criteria? No. Patient's initial sepsis screen is negative. Does the patient have a suspected source of infection? No. Patient's initial sepsis screen is negative. Care prior to arrival: None. 07:19 Method Of Arrival: Ambulatory iw 07:19 Acuity: MARVEL 3 iw Historical: - Allergies: 07:21 NKA; iw - PMHx: 07:21 Diabetes - IDDM; High Cholesterol; Pancreatitis; iw - PSHx: 07:21 Cholecystectomy; iw - Immunization history:: Adult Immunizations up to date. - Social history:: Smoking status: Patient/guardian denies using tobacco. - Ebola Screening: : No symptoms or risks identified at this time. Screenin:18 Abuse screen: Denies threats or abuse. Denies injuries from another. Nutritional jl7 screening: No deficits noted. Tuberculosis screening: No symptoms or risk factors identified. Fall Risk IV access (20 points). Total Hale Fall Scale indicates No Risk (0-24 pts). Assessment: 07:18 General: Appears in no apparent distress. uncomfortable, Behavior is calm, cooperative, jl7 appropriate for age. Pain: Complains of pain in right upper quadrant Pain does not radiate. Pain currently is 9 out of 10 on a pain scale. Quality of pain is described as "Pain" Pain began "It never quit hurting from when I was admitted." Is continuous. Neuro: Level of Consciousness is awake, alert, obeys commands, Oriented to person, place, time, situation. Cardiovascular: Patient's skin is warm and dry. Respiratory: Airway is patent Respiratory effort is even, unlabored, Respiratory pattern is regular, symmetrical. GI: Last BM was April 08, 2018. Bowel sounds present X 4 quads. Abd is soft X 4 quads Abd is non tender in left upper quadrant, right lower quadrant and left lower quadrant Abdomen is tender to palpation in right upper quadrant. : No signs and/or symptoms were reported regarding the genitourinary system. EENT: No signs and/or symptoms were reported regarding the EENT system. Derm: Skin is pink, warm \\T\\ dry. Musculoskeletal: No signs and/or symptoms reported regarding the musculoskeletal system. 07:24 Reassessment: Pt states "The last time this happened and the doctor sent me home while jl7 I was still hurting my took me to another hospital and they said it was my liver. I think that is what's going on this time. I think it's my liver and not my pancreas." Pt denies N/V/D, pt reports being able to eat normally without discomfort. 08:30 Reassessment: No changes from previously documented assessment. Patient and/or family jl7 updated on plan of care and expected duration. Pain level reassessed. Patient is alert, oriented x 3, equal unlabored respirations, skin warm/dry/pink. 09:30 Reassessment: Patient and/or family updated on plan of care and expected duration. Pain jl7 level reassessed. Patient is alert, oriented x 3, equal unlabored respirations, skin warm/dry/pink. 10:25 Reassessment: Pt c/o increased pain, rated 10/10, provider notified, see MAR for orders.jl7 Vital Signs: 07:21 BP 134 / 79; Pulse 110; Resp 18 S; Temp 98.7(O); Pulse Ox 96% on R/A; Weight 102.06 kg; iw Height 5 ft. 6 in. (167.64 cm); Pain 9/10; 08:30 BP 115 / 61; Pulse 99; Resp 16; Pulse Ox 97% ; Pain 9/10; jl7 10:30 BP 120 / 56; Pulse 81; Resp 16; Pulse Ox 96% ; Pain 10/10; jl7 11:00 BP 116 / 65; Pulse 80; Resp 16; Pulse Ox 97% ; Pain 5/10; jl7 11:00 Pain 5/10; jl7 07:21 Body Mass Index 36.32 (102.06 kg, 167.64 cm) ED Course: 07:09 Patient arrived in ED. mr 07:09 Unknown, Unknown is Private Physician. mr 07:16 Alexander Barnes PA is PHCP. jmm 07:16 Bhavesh Mack MD is Attending Physician. jmm 07:18 Patient has correct armband on for positive identification. Placed in gown. Bed in low jl7 position. Call light in reach. Side rails up X 1. Pulse ox on. NIBP on. Warm blanket given. 07:21 Triage completed. iw 07:21 Arm band placed on. iw 07:24 Jose L Aponte, KT is Primary Nurse. jl7 07:46 Initial lab(s) drawn, by me, sent to lab. Urine collected: clean catch specimen, clear, jl7 kianna colored. Inserted saline lock: 20 gauge in right antecubital area, using aseptic technique. Blood collected. 08:[address] via wheelchair. sj 08:14 CT Abd/Pelvis - W/Contrast In Process Unspecified. EDMS 08:15 CT completed. Patient tolerated procedure well. Patient moved back from CT. sj 10:58 Adams Barnes MD is Referral Physician. jmm 11:04 No provider procedures requiring assistance completed. IV discontinued, intact, jl7 bleeding controlled, No redness/swelling at site. Pressure dressing applied. Administered Medications: 08:37 Drug: NS 0.9% 1000 ml Route: IV; Rate: 1 bolus; Site: right antecubital; jl7 09:45 Follow up: Response: No adverse reaction; IV Status: Completed infusion jl7 08:38 Drug: Zofran 4 mg Route: IVP; Site: right antecubital; jl7 09:15 Follow up: Response: No adverse reaction jl7 08:40 Drug: morphine 4 mg Route: IVP; Site: right antecubital; jl7 09:15 Follow up: Response: No adverse reaction; Other; Pain unchanged, pt states "Only jl7 dilaudid has helped in the past." Explained to pt that we are on a dilaudid shortage, pt verbalized understanding. 10:32 Drug: fentaNYL (PF) 50 mcg Route: IVP; Site: right antecubital; jl7 11:00 Follow up: Pain 5/10; Response: No adverse reaction; Pain is decreased jl7 Outcome: 10:59 Discharge ordered by MD. harry 11:04 Discharged to home ambulatory. jl7 11:04 Condition: stable 11:04 Discharge instructions given to patient, Instructed on discharge instructions, follow up and referral plans. medication usage, Demonstrated understanding of instructions, follow-up care, medications, Prescriptions given X 2. 11:06 Patient left the ED. jl7 Signatures: Dispatcher [employer] EDMS Alexander Barnes PA PA jmm Rivera, Maria mr Rios, Corazon Hernandez RN RN iw Leal, Jahala, RN RN jl7 Corrections: (The following items were deleted from the chart) 11:05 11:05 Pain 5/10 Adult; Response: No adverse reaction; Pain is decreased jl7 jl7
--- NOTE | 2018-04-12 10:59 | EDPHYS ---
Physician Documentation [facility] Name: James Gibson Age: 37 yrs Sex: Male : 1980 Arrival Date: 04/12/2018 Time: 07:09 Bed 20 Private MD: Unknown, Unknown ED Physician Bhavesh Mack HPI: 04/12 07:29 This 37 yrs old Male presents to ER via Ambulatory with complaints of jmm Abdominal Pain. 07:29 The patient presents with abdominal pain in the epigastric area. Onset: The jmm symptoms/episode began/occurred gradually, 5 day(s) ago. The symptoms do not radiate. Associated signs and symptoms: Pertinent negatives: nausea and vomiting, diarrhea, fever. The symptoms are described as achy. This is a 37 year old male with a history of DM, HLP, and pancreatitis that presents to the ED with ongoing epigastric abdominal pain. The patient states that he was discharged from the hospital 3 days ago and states that he still has ongoing abdominal pain. Surgical history includes cholecystectomy. . Historical: - Allergies: 07:21 NKA; iw - PMHx: 07:21 Diabetes - IDDM; High Cholesterol; Pancreatitis; iw - PSHx: 07:21 Cholecystectomy; iw - Immunization history:: Adult Immunizations up to date. - Social history:: Smoking status: Patient/guardian denies using tobacco. - Ebola Screening: : No symptoms or risks identified at this time. ROS: 07:29 Constitutional: Negative for fever. jmm 07:29 Abdomen/GI: Positive for abdominal pain, nausea, Negative for vomiting, diarrhea. 07:29 Back: Negative for radiated pain. 07:29 All other systems are negative. Exam: 07:29 Head/Face: atraumatic. jmm 07:29 Constitutional: The patient appears in no acute distress, alert, awake. 07:29 Eyes: Extraocular movements: intact throughout. 07:29 Neck: ROM/movement: is normal. 07:29 Cardiovascular: Rate: normal, Rhythm: regular. 07:29 Respiratory: the patient does not display signs of respiratory distress, Respirations: normal, Breath sounds: are clear throughout. 07:29 Abdomen/GI: Inspection: abdomen appears normal, Bowel sounds: normal, Palpation: soft, mild abdominal tenderness, in the right upper quadrant and left upper quadrant. 07:29 Musculoskeletal/extremity: ROM: intact in all extremities. 07:29 Skin: Appearance: Color: normal in color. 07:29 Neuro: Orientation: is normal, Mentation: is normal, Memory: is normal. 07:29 Psych: Behavior/mood is pleasant, cooperative. Vital Signs: 07:21 BP 134 / 79; Pulse 110; Resp 18 S; Temp 98.7(O); Pulse Ox 96% on R/A; Weight 102.06 kg; iw Height 5 ft. 6 in. (167.64 cm); Pain 9/10; 08:30 BP 115 / 61; Pulse 99; Resp 16; Pulse Ox 97% ; Pain 9/10; jl7 10:30 BP 120 / 56; Pulse 81; Resp 16; Pulse Ox 96% ; Pain 10/10; jl7 11:00 BP 116 / 65; Pulse 80; Resp 16; Pulse Ox 97% ; Pain 5/10; jl7 11:00 Pain 5/10; jl7 07:21 Body Mass Index 36.32 (102.06 kg, 167.64 cm) iw MDM: 07:23 Patient medically screened. [facility] 09:18 Data reviewed: vital signs, nurses notes, lab test result(s), radiologic studies, CT [facility] scan. 10:56 Counseling: I had a detailed discussion with the patient and/or guardian regarding: the [facility] historical points, exam findings, and any diagnostic results supporting the discharge/admit diagnosis, lab results, radiology results, the need for outpatient follow up, to return to the emergency department if symptoms worsen or persist or if there are any questions or concerns that arise at home. Response to treatment: the patient's symptoms have markedly improved after treatment. ED course: Patient states he pain is relieved in the ED. Patient is advised of the need to follow up with GI for further evaluation. Patient advised to return to the ED if he develops increased pain, vomiting, fever, or any other concerning symptoms. Patient understood and agrees with the plan of care. . 04/12 07:24 Order name: Amylase, Serum [facility] 04/12 07:24 Order name: Basic Metabolic Panel [facility] 04/12 07:24 Order name: CBC with Diff [facility] 04/12 07:24 Order name: Creatinine for Radiology; Complete Time: 08:32 [facility] 04/12 07:24 Order name: Hepatic Function [facility] 04/12 07:24 Order name: Lipase; Complete Time: 08:32 jmm 04/12 07:24 Order name: Urine Microscopic Only; Complete Time: 08:17 jmm 04/12 07:25 Order name: Amylase Level; Complete Time: 08:32 EDMS 04/12 07:25 Order name: Basic Metabolic Panel; Complete Time: 08:32 EDMS 04/12 07:25 Order name: CBC with Automated Diff; Complete Time: 08:02 EDMS 04/12 07:25 Order name: Liver (Hepatic) Function; Complete Time: 08:32 EDMS 04/12 07:57 Order name: Urine Dipstick--Ancillary (enter results) ag 04/12 07:58 Order name: Urine Dipstick-Ancillary; Complete Time: 08:17 EDMS 04/12 08:17 Order name: Urine Culture [facility] 04/12 07:24 Order name: IV Saline Lock; Complete Time: 08:07 [facility] 04/12 07:24 Order name: Labs collected and sent; Complete Time: 08:07 [facility] 04/12 07:24 Order name: Urine Dipstick-Ancillary (obtain specimen); Complete Time: 08:07 [facility] 04/12 07:36 Order name: CT Abd/Pelvis - W/Contrast; Complete Time: 08:50 jmm Administered Medications: 08:37 Drug: NS 0.9% 1000 ml Route: IV; Rate: 1 bolus; Site: right antecubital; jl7 09:45 Follow up: Response: No adverse reaction; IV Status: Completed infusion jl7 08:38 Drug: Zofran 4 mg Route: IVP; Site: right antecubital; jl7 09:15 Follow up: Response: No adverse reaction jl7 08:40 Drug: morphine 4 mg Route: IVP; Site: right antecubital; jl7 09:15 Follow up: Response: No adverse reaction; Other; Pain unchanged, pt states "Only jl7 dilaudid has helped in the past." Explained to pt that we are on a dilaudid shortage, pt verbalized understanding. 10:32 Drug: fentaNYL (PF) 50 mcg Route: IVP; Site: right antecubital; jl7 11:00 Follow up: Pain 5/10; Response: No adverse reaction; Pain is decreased jl7 Disposition: 04/12/18 10:59 Discharged to Home. Impression: Epigastric pain. - Condition is Stable. - Discharge Instructions: Abdominal Pain, Adult. - Prescriptions for Tylenol- Codeine #4 300-60 mg Oral Tablet - take 1 tablet by ORAL route every 6 hours As needed; 12 tablet. Zofran 4 mg Oral Tablet - take 1 tablet by ORAL route every 12 hours As needed; 20 tablet. - Medication Reconciliation Form, Thank You Letter, Antibiotic Education, Prescription Opioid Use form. - Follow up: Adams Barnes MD; When: 2 - 3 days; Reason: Continuance of care. Addendum: 04/13/2018 15:54 Co-signature as Attending Physician, Bhavesh Mack MD Available for consultation at p s1 all times.. Signatures: Dispatcher [employer] EDMS Alexander Barnes PA PA jmm Williams, Irene, RN RN Jose L Andres RN RN jl7 Bhavesh Mack MD MD ps1 Corrections: (The following items were deleted from the chart) 04/12 11:06 10:59 04/12/2018 10:59 Discharged to Home. Impression: Epigastric pain. Condition is jl7 Stable. Forms are Medication Reconciliation Form, Thank You Letter, Antibiotic Education, Prescription Opioid Use. Follow up: Adams Barnes; When: 2 - 3 days; Reason: Continuance of care. [email or web address]
[2018-04-12 11:10] VITALS: TEMP 98.7
[2018-04-12 11:14] VITALS: BP 116/65; O2SAT 97
== END 2018-04-12 11:06 | disposition home or self-care (01) ==
LOC: ER 07:06
DX: R10.13 Epigastric pain (principal); E11.9 Type 2 diabetes mellitus without complications
CPT/HCPCS: 36415; 74177; 80048; 80076; 81003; 81015; 82150; 83690; 85025; 87086; 87088; 96361; 96374; 96375; 99284; J2405; J3010; J7030; Q9967

== ENCOUNTER 2020-04-01 13:22 | Inpatient (IN) | payer OTHER, SELFPAY ==
--- OUTSIDE RECORDS SUMMARY | 2020-04-01 13:25 | XMS REPORT | Continuity of Care Document ---
:1980 Author Organization [facility] Care Team Providers Name Role Phone [facility] Unavailable Un available Problems Problem Status Onset Classification Date Comments Sourc e Date Reported Calculus of bile 12/12/2018 [facility] duct without 8 Medical cholangitis or Cente r cholecystitis without obstruction EDDC-PANCREATITIS Active [facility] / BILE DUCT 8 Medical STRITURE Center Personal history 12/12/2018 [facility] of nicotine Medical dependence Center Gastro-esophageal 12/12/2018 [facility] reflux disease Medic al without Center esophagitis Type 2 diabetes 12/12/2018 [facility] mellitus without Med ical complications Center Obesity, 12/12/2018 [facility] unspecified Medical Center Body mass index 12/12/2018 [facility] (BMI) 35.0-35.9, Med ical adult Center Hyperlipidemia, 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/2018 [facility]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/12/2018 [facility] (current) use of Med ical oral hypoglycemic Ce nter drugs Medications No Data Provided for This Section Allergies, Adverse Reactions, Alerts No Known Medication Allergies Immunizations No Data Provided for This Section Results No Data Provided for This Section Pathology Reports No Data Provided for This Section Diagnostic Reports Report Value Date Source ERCP Diagnostic DX EXAM: FLUOROSCOPY ERCP 05/25/2018 [facility] DATE: 05/25/2018 11:[address] INDICATION: bile duct stones/stent removal ADDITIONAL INFORMATION: Procedure note: 'A stent was removed from the bile duct and stones versus out of the bile duct with a balloon catheter. A dilated balloon catheter was then used to dilate the distal bile duct.' COMPARISON: None. TECHNIQUE: Fluoroscopic images were provided for interpretation. FLUOROSCOPY TIME: 1.8 FINDINGS: The hepatic biliary ducts are mildly dilated, le ft greater than right. ERCP performed by GI service. IMPRESSION: * Biliary stent removal. * Balloon sweep of biliary stones. * Dilation catheter was used to dilate the dist al bile duct. * Please see ERCP report by gastrointestinal for more details and recommendations. Consultation Notes No Data Provided for This Section Discharge Summaries No Data Provided for This Section History and Physicals No Data Provided for This Section Vital Signs No Data Provided for This Section Encounters Location Location Encounter Encounter Reason Attending ADM DC Stat us Source Details Type Number For Provider Date Date Visit [id number] [place] [facility] 05[facility]25 [facility] Procedures No Data Provided for This Section Assessment and Plan No Data Provided for This Section Plan of Care No Data Provided for This Section Social History Social History Date Source No data available for this 05/25/2018 [facility] section No data available for this 05/13/2018 [facility] section Family History No Data Provided for This Section Advance Directives No Data Provided for This Section Functional Status No Data Provided for This Section
--- OUTSIDE RECORDS SUMMARY | 2020-04-01 13:25 | XMS REPORT | Clinical Summary ---
:1980 Author Organization [facility] Address [address] [place] [address] Care Team Providers Name Role Phone Unavailable Primary Care Provider Unavailable Allergies No Known Allergies Medications Not on file Active Problems Not on file Social History Tobacco Use Types Packs/Day Years Used Date Former Smoker Smokeless Tobacco: Never Used Comments: quit 4 weeks ago Alcohol Use Drinks/Week oz/Week Comments No quit 4weeks ago Sex Assigned at Date Recorded Not on file Job Start Date Occupation Industry Not on file Not on file Not on file Travel History Travel Start Travel End No recent travel history available. Last Filed Vital Signs Not on file Plan of Treatment Health Maintenance Due Date Last Done Comments INFLUENZA VACCINE 05/12/2020 Results Not on fileafter 04/01/2019 Advance Directives For more information, please contact: [phone] Type Date Recorded Patient Spraying Machine Operator Explanati on Advance Directives, Living Will and Medical Power of Communication Skills Instructor
[2020-04-01] MEDS ORDERED: LIDOCAINE VISCOUS 2% SOLN 15 ML UDC ONE (13:55)
[2020-04-01] MEDS ORDERED: MORPHINE 4 MG/ML SYR ONE (13:55)
[2020-04-01] MEDS ORDERED: NA CHLORIDE 0.9% 1,000 ML ONE (13:55)
[2020-04-01] MEDS ORDERED: ONDANSETRON 4 MG/2 ML VIAL ONE (13:55)
[2020-04-01] MEDS ORDERED: MAGNE/ALUM HYDROXD 30 ML UCUP ONE (13:55)
[2020-04-01] MEDS ORDERED: FAMOTIDINE 20 MG/2 ML VIAL IV ONE (13:56)
[2020-04-01] MEDS ORDERED: HYDROMORPHONE HCL 1 MG/ML INJ ONE ×3 (14:15→19:19)
--- NOTE | 2020-04-01 14:49 | RAD REPORT ---
EXAM DESCRIPTION: CT - Abdomen Pelvis W Contrast - 04/01/2020 2:24 pm CLINICAL HISTORY: Abdominal pain COMPARISON: 2014 TECHNIQUE: Computed axial tomography of the abdomen pelvis was obtained. 100 cc Isovue-300 was admin istered intravenously. Oral contrast was not requested which limits evaluation of bowel. All CT scans are performed using dose optimization technique as appropriate and may include automated exposure control or mA/KV adjustment according to patient size. FINDINGS: The pancreatic head and uncinate are enlarged and inhomogeneous. Moderate stranding within adjacent fat. Fatty liver. Mild hepatomegaly. Cholecystectomy Spleen, left adrenal and right kidney unremarkable Small left renal cyst 16 millimeter right adrenal nodule unchanged likely an adenoma There is no evidence of diverticulitis. Normal appendix IMPRESSION: Moderate pancreatitis
[2020-04-01 15:38] LABS: Absolute Lymphocytes (CBC) 2.1 K/uL (0.7-4.9); Hematocrit 45.9 % (39.6-49.0); Lymphocytes % 15.8 % (15.3-44.8); MPV 11.6 fL (7.6-11.3); RBC Red Blood Cell Count 5.19 M/uL (4.33-5.43)
[2020-04-01 16:02] LABS: ALT/SGPT 37 U/L (12-78); Albumin 3.7 g/dL (3.4-5.0); Alkaline Phosphatase 119 U/L (45-117); BUN Blood Urea Nitrogen 18 mg/dL (7-18); Bicarbonate 21 mmol/L (21-32); Bilirubin Direct < 0.1 mg/dL (0-0.2); Bilirubin Total 0.6 mg/dL (0.2-1.0); Lipase 15860 U/L (73-393); Protein, Total 7.7 g/dL (6.4-8.2); Sodium Level 134 mmol/L (136-145)
[2020-04-01 16:03] LABS: AST/SGOT 33 U/L (15-37)
[2020-04-01 16:05] LABS: Potassium 5.7 mmol/L (3.5-5.1)
[2020-04-01 16:06] LABS: Glucose Level 416 mg/dL (74-106)
[2020-04-01] MEDS ORDERED: PROMETHAZINE INJ 25 MG/ML AMP ONE (16:16)
--- NOTE | 2020-04-01 17:14 | EDPHYS ---
Physician Documentation [facility] Name: James Gibson Age: 39 yrs Sex: Male : 1980 Arrival Date: 04/01/2020 Time: 13:25 Bed 16 Private MD: ED Physician Alicia Stephens HPI: 04/01 15:38 This 39 yrs old Male presents to ER via Ambulatory with complaints of Pancreas ma2 Pain. 15:38 The patient presents with abdominal pain in the epigastric area. Onset: The ma2 symptoms/episode began/occurred gradually, 3 day(s) ago. Associated signs and symptoms: Pertinent positives: nausea and vomiting, Pertinent negatives: chest pain, fever, hematuria, testicular pain, vomiting blood. The symptoms are described as burning. Severity of pain: At its worst the pain was moderate in the emergency department the pain is unchanged. The patient has experienced similar episodes in the past. Historical: - Allergies: 13:33 NKA; ll1 - PMHx: 13:33 Diabetes - IDDM; High Cholesterol; Pancreatitis; ll1 - PSHx: 13:33 Cholecystectomy; ll1 - Social history:: Smoking status: Patient denies any tobacco usage or history of. Patient/guardian denies using alcohol, street drugs, tobacco products, Patient/guardian denies using The patient lives with spouse. - Family history:: not pertinent. ROS: 15:38 Constitutional: Negative for fever, chills, and weight loss. ma2 15:38 All other systems are negative. Exam: 15:38 Constitutional: This is a well developed, well nourished patient who is awake, alert, ma2 and in no acute distress. Neck: Trachea midline, no thyromegaly or masses palpated, and no cervical lymphadenopathy. Supple, full range of motion without nuchal rigidity, or vertebral point tenderness. No Meningismus. Chest/axilla: Normal chest wall appearance and motion. Nontender with no deformity. No lesions are appreciated. Cardiovascular: Regular rate and rhythm with a normal S1 and S2. No gallops, murmurs, or rubs. Normal PMI, no JVD. No pulse deficits. Respiratory: Lungs have equal breath sounds bilaterally, clear to auscultation and percussion. No rales, rhonchi or wheezes noted. No increased work of breathing, no retractions or nasal flaring. Abdomen/GI: Soft, non-tender, with normal bowel sounds. No distension or tympany. No guarding or rebound. No evidence of tenderness throughout. MS/ Extremity: Pulses equal, no cyanosis. Neurovascular intact. Full, normal range of motion. Neuro: Awake and alert, GCS 15, oriented to person, place, time, and situation. Cranial nerves II-XII grossly intact. Motor strength 5/5 in all extremities. Sensory grossly intact. Cerebellar exam normal. Normal gait. Vital Signs: 13:32 BP 143 / 82; Pulse 72; Resp 18; Temp 98.2; Pulse Ox 95% ; Pain 10/10; ll1 14:00 BP 125 / 75; Pulse 68; Resp 18; Pulse Ox 93% ; ll1 15:00 BP 120 / 61; Pulse 68; Resp 17; Pulse Ox 92% ; ll1 16:00 BP 112 / 68; Pulse 72; Resp 17; Pulse Ox 94% ; ll1 19:17 BP 122 / 75; Pulse 81; Resp 17; Temp 98.5(O); Pulse Ox 91% ; ah MDM: 13:34 Patient medically screened. ny2 15:38 Differential diagnosis: gastritis, gastroesophageal reflux disease, Irritable bowel ma2 syndrome, pancreatitis. Data reviewed: vital signs, nurses notes. Counseling: I had a detailed discussion with the patient and/or guardian regarding: the historical points, exam findings, and any diagnostic results supporting the discharge/admit diagnosis, the presence of at least one elevated blood pressure reading (>120/80) during this emergency department visit, the need for outpatient follow up. 17:13 Response to treatment: the patient's symptoms have markedly improved after treatment. ny2 04/01 13:40 Order name: BMP; Complete Time: 17:11 ny2 04/01 13:40 Order name: CBC with Diff; Complete Time: 16:03 ny2 04/01 13:40 Order name: Hepatic Function; Complete Time: 17:11 ny2 04/01 13:40 Order name: Lipase; Complete Time: 17:11 ny2 04/01 13:40 Order name: CT Abd/Pelvis - IV Contrast Only; Complete Time: 15:37 ma2 04/01 14:46 Order name: CREATININE WHOLE BLOOD; Complete Time: 15:37 EDKS 04/01 13:40 Order name: IV Saline Lock; Complete Time: 14:00 ma2 04/01 13:40 Order name: Labs collected and sent; Complete Time: 13:59 ma2 04/01 13:40 Order name: NPO; Complete Time: 13:59 ma2 Administered Medications: 13:59 Drug: morphine 4 mg Route: IVP; Site: left antecubital; ll1 14:56 Follow up: Response: No adverse reaction; RASS: Alert and Calm (0) ll1 13:59 Drug: Zofran (Ondansetron) 4 mg Route: IVP; Site: left antecubital; ll1 14:56 Follow up: Response: No adverse reaction ll1 13:59 Drug: NS 0.9% 1000 ml Route: IV; Rate: 1000 ml; Site: left antecubital; ll1 13:59 Drug: Pepcid 20 mg Route: IVP; Site: left antecubital; ll1 14:56 Follow up: Response: No adverse reaction; RASS: Alert and Calm (0) ll1 14:12 Drug: Dilaudid 1 mg Route: IVP; Site: left antecubital; ll1 14:56 Follow up: Response: No adverse reaction; Pain is decreased; RASS: Alert and Calm (0) ll1 14:13 Drug: GI Cocktail without - (Maalox Suspension 30 ml, Lidocaine Liquid 2 % 15 ll1 ml) Route: PO; 14:56 Follow up: Response: No adverse reaction; RASS: Alert and Calm (0) ll1 16:13 Drug: Phenergan 25 mg Route: IVP; Site: left antecubital; ll1 16:16 Follow up: Response: No adverse reaction; RASS: Alert and Calm (0) ll1 16:16 Drug: Dilaudid 1 mg Route: IVP; Site: left antecubital; ll1 16:52 Follow up: Response: No adverse reaction; RASS: Alert and Calm (0) ll1 19:16 Drug: Dilaudid 1 mg Route: IVP; Site: left antecubital; Disposition: 04/01/20 17:13 Hospitalization ordered by Prince Delfina for Inpatient Admission. Preliminary diagnosis are Elevated blood glucose level, Acute pancreatitis. - Bed requested for Telemetry/MedSurg (Inpatient). - Status is Inpatient Admission. ah - Condition is Stable. - Problem is new. - Symptoms are unchanged. Signatures: Dispatcher [employer] EDDale Chan em1 Alicia Stephens MD MD ma2 Deya Boyer, RN RN Lennie Welsh RN RN ll1 Corrections: (The following items were deleted from the chart) 18:43 17:13 Hospitalization Ordered by Prince Delfina FELIX for Inpatient Admission. Preliminary em1 diagnosis is Elevated blood glucose level; Acute pancreatitis. Bed requested for Telemetry/MedSurg (Inpatient). Status is Inpatient Admission. Condition is Stable. Problem is new. Symptoms are unchanged. ma2 20:02 18:43 04/01/2020 17:13 Hospitalization Ordered by Prince Delfina FELIX for Inpatient Admission. Preliminary diagnosis is Elevated blood glucose level; Acute pancreatitis. Bed requested for Telemetry/MedSurg (Inpatient). Status is Inpatient Admission. Condition is Stable. Problem is new. Symptoms are unchanged. em1
--- NOTE | 2020-04-01 17:14 | ER ---
Nurse's Notes [facility] Name: James Gibson Age: 39 yrs Sex: Male : 1980 Arrival Date: 04/01/2020 Time: 13:25 Bed 16 Private MD: Diagnosis: Elevated blood glucose level;Acute pancreatitis Presentation: 04/01 13:32 Chief complaint: Patient states: Abdominal pain with N/V for 1 day. Last pancreatitis ll1 attack 2 years ago. Coronavirus screen: Proceed with normal triage. Patient denies a cough. Patient denies shortness of breath or difficulty breathing. Patient denies measured and/or subjective temperature greater than 100.4F prior to today's visit. Patient denies travel on a cruise ship or to a country [facility] currently lists as an affected area. Patient denies contact with known and/or suspected case of COVID-19. Ebola Screen: Patient denies travel to an Ebola-affected area in the 21 days before illness onset. Initial Sepsis Screen: Does the patient meet any 2 criteria? No. Patient's initial sepsis screen is negative. Risk Assessment: Do you want to hurt yourself or someone else? Patient reports no desire to harm self or others. Onset of symptoms was April 01, 2020. 13:32 Method Of Arrival: Ambulatory ll1 13:32 Acuity: MARVEL 3 ll1 19:44 Initial Sepsis Screen: Does the patient have a suspected source of infection? No. ah Patient's initial sepsis screen is negative. Historical: - Allergies: 13:33 NKA; ll1 - PMHx: 13:33 Diabetes - IDDM; High Cholesterol; Pancreatitis; ll1 - PSHx: 13:33 Cholecystectomy; ll1 - Social history:: Smoking status: Patient denies any tobacco usage or history of. Patient/guardian denies using alcohol, street drugs, tobacco products, Patient/guardian denies using The patient lives with spouse. - Family history:: not pertinent. Screenin:38 Abuse screen: Denies threats or abuse. Nutritional screening: No deficits noted. ll1 Tuberculosis screening: No symptoms or risk factors identified. Fall Risk None identified. IV access (20 points). Ambulatory Aid- Crutches/Cane/Walker (15 pts). Gait- Weak (10 pts.). Total Hale Fall Scale indicates High Risk Score (45 or more points). Fall prevention measures have been instituted. Side Rails Up X 2 Placed Close to Nursing Station Frequent Obs/Assessments Occuring Family Present and informed to notify staff if the need to leave the bedside As available patient and family educated on Fall Prevention Program and Strategies. Assessment: 13:37 General: Appears uncomfortable, ill, Behavior is cooperative, appropriate for age. ll1 Pain: Complains of pain in abdomen Pain currently is 10 out of 10 on a pain scale. Neuro: No deficits noted. Cardiovascular: No deficits noted. Respiratory: No deficits noted. GI: Abdomen is flat, Bowel sounds present X 4 quads. Abd is soft Abdomen is tender to palpation in right upper quadrant and left upper quadrant Reports upper abdominal pain, nausea, vomiting. : No deficits noted. 14:35 Reassessment: Patient appears in no apparent distress at this time. No changes from ll1 previously documented assessment. Patient and/or family updated on plan of care and expected duration. Pain level reassessed. Patient is alert, oriented x 3, equal unlabored respirations, skin warm/dry/pink. 15:35 Reassessment: Patient appears in no apparent distress at this time. No changes from ll1 previously documented assessment. Patient and/or family updated on plan of care and expected duration. Pain level reassessed. Patient is alert, oriented x 3, equal unlabored respirations, skin warm/dry/pink. 16:35 Reassessment: Patient appears in no apparent distress at this time. No changes from ll1 previously documented assessment. Patient and/or family updated on plan of care and expected duration. Pain level reassessed. Patient is alert, oriented x 3, equal unlabored respirations, skin warm/dry/pink. 17:35 Reassessment: Patient and/or family updated on plan of care and expected duration. Pain ah level reassessed. Patient is alert, oriented x 3, equal unlabored respirations, skin warm/dry/pink. 18:35 Reassessment: Patient and/or family updated on plan of care and expected duration. Pain ah level reassessed. Patient is alert, oriented x 3, equal unlabored respirations, skin warm/dry/pink. Awaiting on room assignment. No needs voiced at this time. 19:22 Reassessment: Attempted to call report. Awaiting on nurse to call back. Vital Signs: 13:32 BP 143 / 82; Pulse 72; Resp 18; Temp 98.2; Pulse Ox 95% ; Pain 10/10; ll1 14:00 BP 125 / 75; Pulse 68; Resp 18; Pulse Ox 93% ; ll1 15:00 BP 120 / 61; Pulse 68; Resp 17; Pulse Ox 92% ; ll1 16:00 BP 112 / 68; Pulse 72; Resp 17; Pulse Ox 94% ; ll1 19:17 BP 122 / 75; Pulse 81; Resp 17; Temp 98.5(O); Pulse Ox 91% ; ah ED Course: 13:25 Patient arrived in ED. bp1 13:32 Lennie Henderson, KT is Primary Nurse. ll1 13:33 Triage completed. ll1 13:33 Arm band placed on Patient placed in an exam room, on a stretcher. ll1 13:34 Alicia Stephens MD is Attending Physician. ma2 13:39 Patient has correct armband on for positive identification. Placed in gown. Bed in low ll1 position. Call light in reach. Side rails up X 1. 14:24 CT Abd/Pelvis - IV Contrast Only In Process Unspecified. EDMS 16:06 Notified ED physician of a critical lab result(s). Potassium 5.7, glucose 416. Specimen ll1 slightly hemolyzed (took 3 collection attempts). 17:13 Prince Mathis MD is Hospitalizing Provider. [facility] 19:31 Inserted saline lock: 20 gauge in left antecubital area, using aseptic technique. 19:31 No provider procedures requiring assistance completed. Patient admitted, IV remains in place. Administered Medications: 13:59 Drug: morphine 4 mg Route: IVP; Site: left antecubital; ll1 14:56 Follow up: Response: No adverse reaction; RASS: Alert and Calm (0) 1 13:59 Drug: Zofran (Ondansetron) 4 mg Route: IVP; Site: left antecubital; ll1 14:56 Follow up: Response: No adverse reaction 1 13:59 Drug: NS 0.9% 1000 ml Route: IV; Rate: 1000 ml; Site: left antecubital; ll1 13:59 Drug: Pepcid 20 mg Route: IVP; Site: left antecubital; ll1 14:56 Follow up: Response: No adverse reaction; RASS: Alert and Calm (0) ll1 14:12 Drug: Dilaudid 1 mg Route: IVP; Site: left antecubital; ll1 14:56 Follow up: Response: No adverse reaction; Pain is decreased; RASS: Alert and Calm (0) ll1 14:13 Drug: GI Cocktail without - (Maalox Suspension 30 ml, Lidocaine Liquid 2 % 15 ll1 ml) Route: PO; 14:56 Follow up: Response: No adverse reaction; RASS: Alert and Calm (0) ll1 16:13 Drug: Phenergan 25 mg Route: IVP; Site: left antecubital; ll1 16:16 Follow up: Response: No adverse reaction; RASS: Alert and Calm (0) ll1 16:16 Drug: Dilaudid 1 mg Route: IVP; Site: left antecubital; ll1 16:52 Follow up: Response: No adverse reaction; RASS: Alert and Calm (0) ll1 19:16 Drug: Dilaudid 1 mg Route: IVP; Site: left antecubital; Outcome: 17:13 Decision to Hospitalize by Provider. ma2 19:43 Admitted to Med/surg accompanied by tech, via wheelchair, room 205, with chart, Report called to Aaliyah. KT 19:43 Condition: stable 19:43 Instructed on the need for admit. 20:02 Patient left the ED. Signatures: Dispatcher [employer] EDMS Alicia Stephens MD MD ma2 Deya Boyer RN Lennie Samano RN RN [facility] Haritha Schultz
--- NOTE | 2020-04-01 17:45 | P.HP ---
Certification for Inpatient Patient admitted to: Inpatient With expected LOS: >2 Midnights Patient will require the following post-hospital care: None Practitioner: I am a practitioner with admitting privileges, knowledge of patient current condition, hospital course, and medical plan of care. Services: Services provided to patient in accordance with Admission requirements found in Title 42 Section 412.3 of the Code of Federal Regulations Patient History Date of Service: 04/01/20 Reason for admission: abdominal pain History of Present Illness: Patient is a 39 year old male with a known PMH of obesity, type II diabetes mellitus (on metformin), HLD and recurrent pancreatitis. He presents today to address an acutely worsening abdominal pain that started the morning of admission. Patient is reporting a non-radiating epigastric pain associated non- bilious, non-bloody vomiting. He denies any history of excessive alcoholism. He has had 2 episodes of pancreatitis in the past. The first episode occurred 6 years ago. He underwent cholecystectomy then. This is his third episode. Allergies No Known Drug Allergies Allergy (Verified 01/28/15 21:17) Unknown No Known Allergies Allergy (Uncoded 04/06/18 22:27) Unknown Home medications list reviewed: Yes Home Medications: Fenofibrate 160 mg PO BEDTIME 04/06/18 Metformin ER [Glucophage ER*] 500 mg PO BID 04/06/18 Atorvastatin Calcium [Lipitor] 40 mg PO BEDTIME #60 tab 04/09/18 Codeine/APAP [Tylenol W/Codeine #3 tab] 1 tab PO Q6HP PRN #12 tab 04/09/18 - Past Medical/Surgical History Diabetic: Yes -: niddm -: htn -: pancreatitis -: janet -: ERCP - Family History Mother -: Hypertension - Social History Alcohol use: Yes CD- Drugs: No Caffeine use: Yes Physical Examination - Physical Exam General: Alert, Oriented x3, Cooperative, Moderate distress, Obese HEENT: Atraumatic, Normocephalic, EOMI Neck: Supple Respiratory: Clear to auscultation bilaterally, Normal air movement Cardiovascular: No edema, Normal pulses, Regular rate/rhythm, Normal S1 S2 Gastrointestinal: Hypoactive, Non-distended, Other (Decreased bowel sounds, epigastric tenderness. No guarding or distention ), Tenderness Integumentary: No rashes, No breakdown, No significant lesion, No tenderness/swelling, No erythema, No warmth, No cyanosis Neurological: Normal speech, Sensation intact, Normal affect - Studies Laboratory Data (last 24 hrs) 04/01/20 15:19: WBC 13.4 H, Hgb 14.6, Hct 45.9, Plt Count 243 04/01/20 15:19: Sodium 134 L, Potassium 5.7 H*, BUN 18, Creatinine 1.21, Glucose 416 H*, Total Bilirubin 0.6, AST 33, ALT 37, Alkaline Phosphatase 119 H, Lipase 52002 H Assessment and Plan - Problems (Diagnosis) (1) Acute on chronic pancreatitis Current Visit: Yes Status: Acute (2) Type II diabetes mellitus Current Visit: Yes Status: Acute (3) Hypertension Current Visit: Yes Status: Acute (4) Hyperlipidemia Onset Date: 01/29/15 Current Visit: No Status: Acute - Plan Assessment A 39 year old male with HTN, HLD AND chronic pancreatitis admitted for acute on chronic pancreatitis. Lipase > 15,000 on admission. Meets criteria of SIRS with organ dysfunction as evidenced by severe hyperglycemia Acute on chronic pancreatitis HLD Type II diabetes mellitus HTN Hyperkalemia PLAN Admit inpatient to [facility] NPO Start NS infusion at 150 cc/hr Pain control and anti-emetic Check triglycerides and abdominal ultrasound Check A1c and acetone Kayexalate for hyperkalemia - Advance Directives Does patient have a Living Will: No Does patient have a Durable POA for Healthcare: No
[2020-04-01] MEDS ORDERED: SOD POLYSTYREN SUL 15 GM/60 ML UCUP PO ONE (19:56)
[2020-04-01 20:56] LABS: HDL Cholesterol 32 mg/dL (40-60)
[2020-04-01 21:09] LABS: LDL, Direct 116 mg/dL (100-129)
[2020-04-01] MEDS: NA CHLORIDE 0.9% 1,000 ML IV SCH (21:40)
[2020-04-01] MEDS: ONDANSETRON 4 MG/2 ML VIAL IV PRN (21:42)
[2020-04-01] MEDS ORDERED: FENTANYL CITR 100 MCG/2 ML IV SCH ×2 (22:00→23:00)
[2020-04-01 22:17] VITALS: BMI 46.7
[2020-04-01 22:52] LABS: Urine Appearance CLEAR; Urine Bilirubin NEGATIVE (NEG); Urine Blood NEGATIVE (NEG); Urine Color YELLOW; Urine Glucose 3+ (NEG); Urine Protein 2+ (NEG); Urine Specific Gravity >=1.030 (1.005-1.030); Urine Urobilinogen 0.2 mg/dL (0.2-1.0)
[2020-04-01] MEDS ORDERED: GLUCAGON 1 MG/VIAL IM PRN (22:56)
[2020-04-01] MEDS ORDERED: INSULIN GLARGINE 100 UNITS/ML SQ ONE (23:00)
[2020-04-01] MEDS ORDERED: D5 0.9 NS 500 ML IV SCH ×2 (23:00→23:06)
[2020-04-01] MEDS: DOCOSAHEXANOIC AC/EPA 1000 MG PO SCH (23:36)
[2020-04-01] MEDS: gemfibroziL 600 MG TAB PO SCH (23:36)
[2020-04-02 00:04] LABS: Urine Bacteria <20 /HPF (NONE SEEN); Urine Culture Reflex Order REFLEXED; Urine RBC NONE SEEN /HPF (NONE SEEN); Urine Urothelial Cells <5 /HPF (NONE SEEN)
[2020-04-02 00:34] LABS: Barbiturates NEGATIVE (NEGATIVE); Benzodiazepines NEGATIVE (NEGATIVE); Cocaine NEGATIVE (NEGATIVE); METHAMPHETAM NEGATIVE (NEGATIVE); Methadone INVALID (NEGATIVE); Opiates NEGATIVE (NEGATIVE); Phencyclidine NEGATIVE (NEGATIVE); THC Cannibis NEGATIVE (NEGATIVE)
[2020-04-02] MEDS ORDERED: NA CHLORIDE 0.9% 500 ML IV ONE ×3 (00:45→05:58)
[2020-04-02] MEDS: FENTANYL CITR 100 MCG/2 ML IV SCH ×2 (01:06→04:50)
[2020-04-02] MEDS: NA CHLORIDE 0.9% 1,000 ML IV SCH (05:27)
[2020-04-02 06:32] LABS: Magnesium 1.9 mg/dL (1.8-2.4); Potassium 4.4 mmol/L (3.5-5.1)
[2020-04-02 06:50] LABS: LDL, Direct 107 mg/dL (100-129)
[2020-04-02] MEDS ORDERED: GLUCAGON 1 MG/VIAL IM PRN ×2 (07:28→07:29)
[2020-04-02] MEDS ORDERED: D50W 25 GM/50 ML SYRINGE/VIAL IV PRN ×2 (07:28→07:29)
[2020-04-02] MEDS ORDERED: INSULIN -REGULAR HUMAN 100 UNIT in NA CHLORIDE 0.9% 100 ML IV SCH (07:30)
[2020-04-02] MEDS: ONDANSETRON 4 MG/2 ML VIAL IV PRN (07:53)
[2020-04-02] MEDS: lisinopriL 20 MG TAB PO SCH ×2 (07:53→08:13)
[2020-04-02] MEDS: gemfibroziL 600 MG TAB PO SCH ×2 (07:53→19:40)
[2020-04-02] MEDS: HYDROMORPHONE HCL 1 MG/ML INJ IV PRN ×5 (07:53→23:57)
[2020-04-02] MEDS: NACHLORIDE 0.45% 1,000 ML IV SCH ×3 (07:54→21:20)
[2020-04-02] MEDS: D5 0.45 NS 1,000 ML IV SCH ×3 (08:00→21:20)
[2020-04-02] MEDS: INSULIN -REGULAR HUMAN 100 UNIT in NA CHLORIDE 0.9% 100 ML IV SCH ×2 (08:16→16:34)
[2020-04-02] MEDS ORDERED: DOCOSAHEXANOIC AC/EPA 1000 MG PO SCH (09:00)
[2020-04-02] MEDS ORDERED: gemfibroziL 600 MG TAB PO SCH (09:00)
[2020-04-02] MEDS: DOCOSAHEXANOIC AC/EPA 1000 MG PO SCH ×3 (09:10→19:39)
--- NOTE | 2020-04-02 11:02 | P.PN ---
Subjective Date of Service: 04/02/20 Chief Complaint: abdominal pain Subjective: Improving (Pain is better controlled. He is transferred to ICU for insulin infusion for hypertriglyceride-induced pancreatitis.) Physical Examination - Vital Signs Temperature: 98.1 F Blood Pressure: 150/106 Pulse: 113 Respirations: 14 Pulse Ox (%): 93 - Physical Exam General: Cooperative, Mild distress HEENT: Atraumatic, Normocephalic, EOMI Neck: Supple Respiratory: Clear to auscultation bilaterally, Normal air movement Cardiovascular: No edema, Normal pulses, Regular rate/rhythm, Normal S1 S2 Gastrointestinal: Hypoactive, Non-distended, No guarding, Tenderness Musculoskeletal: No clubbing, No swelling, No contractures, No erythema, No tenderness, No warmth Integumentary: No rashes, No breakdown, No significant lesion, No tenderness/swelling, No erythema, No warmth Neurological: Normal speech, Sensation intact, Normal affect - Studies Laboratory Data (last 24 hrs) 04/01/20 15:19: WBC 13.4 H, Hgb 14.6, Hct 45.9, Plt Count 243 04/01/20 15:19: Sodium 134 L, Potassium 5.7 H*, BUN 18, Creatinine 1.21, Glucose 416 H*, Total Bilirubin 0.6, AST 33, ALT 37, Alkaline Phosphatase 119 H, Lipase 77726 H Assessment & Plan - Problems (Diagnosis) (1) Acute on chronic pancreatitis Current Visit: Yes Status: Acute (2) Type II diabetes mellitus Current Visit: Yes Status: Acute (3) Hypertension Current Visit: Yes Status: Acute (4) Hyperlipidemia Onset Date: 01/29/15 Current Visit: No Status: Acute (5) Hypertriglyceridemia Current Visit: Yes Status: Acute (6) Diabetes mellitus Onset Date: 01/29/15 Current Visit: No Status: Acute Qualifiers: Diabetes mellitus type: type 2 Diabetes mellitus chcf insulin use: without superintendent container terminal use Diabetes mellitus complication status: with unspecified complications (7) Acute renal injury Onset Date: 04/07/18 Current Visit: No Status: Acute Physician Review Additional Text: Assessment Patient is a 39 year old male with HTN, HLD, uncontrolled type II diabetes mellitus admitted for acute on chronic pancreatitis. Found to have triglycerides > 4000. Transferred to ICU for insulin infusion. Overall, there is clinical improvement from a symptomatic standpoint. Acute on chronic pancreatitis Hyperlipidemia with hypertriglyceridemia HTN Type II diabetes mellitus with hyperglycemia PLAN Continue insulin drip Check triglycerides q 12 hours, glucose q 1 hour Continue LR infusion and pain control DC insulin drip when Trig < 500, then transition to NPH Continue multi-modal pain regimen Add lisinopril for BP control Continue NPO status
--- NOTE | 2020-04-02 18:54 | RAD REPORT ---
EXAM DESCRIPTION: US - Liver Only - 04/02/2020 6:34 pm CLINICAL HISTORY: acute pancreatitis Abdominal pain COMPARISON: Abdomen Pelvis W Contrast dated 04/01/2020 FINDINGS: The liver demonstrates diffuse fatty infiltration.The liver is mildly enlarged in size.No focal liver lesion or intrahepatic biliary dilatation.No evidence of portal vein thrombosis. Common bile duct is normal measuring 3 mm. IMPRESSION: Hepatomegaly with diffuse fatty liver.
[2020-04-02] MEDS: FENOFIBRATE 160 MG TAB PO SCH (19:40)
[2020-04-02] MEDS: ATORVASTATIN 40 MG TAB PO SCH (19:40)
[2020-04-02 20:01] LABS: LDL, Direct 45 mg/dL (100-129)
[2020-04-02] MEDS ORDERED: INSULIN GLARGINE 100 UNITS/ML SQ ONE (23:00)
[2020-04-03] MEDS: INSULIN -REGULAR HUMAN 100 UNIT in NA CHLORIDE 0.9% 100 ML IV SCH ×4 (00:01→20:24)
[2020-04-03] MEDS: D5 0.45 NS 1,000 ML IV SCH ×4 (02:11→22:04)
[2020-04-03] MEDS: NACHLORIDE 0.45% 1,000 ML IV SCH ×3 (04:00→17:20)
[2020-04-03] MEDS: HYDROMORPHONE HCL 1 MG/ML INJ IV PRN ×5 (04:26→19:28)
[2020-04-03] MEDS: ONDANSETRON 4 MG/2 ML VIAL IV PRN ×3 (07:20→19:29)
[2020-04-03 07:58] LABS: Absolute Lymphocytes (CBC) 1.4 K/uL (0.7-4.9); Basophils % 0.6 % (0-1.3); Hematocrit 44.1 % (39.6-49.0); Lymphocytes % 10.5 % (15.3-44.8); MPV 11.5 fL (7.6-11.3); RBC Red Blood Cell Count 5.08 M/uL (4.33-5.43)
[2020-04-03 08:07] LABS: Potassium 3.4 mmol/L (3.5-5.1)
[2020-04-03 08:17] LABS: LDL, Direct 70 mg/dL (100-129)
[2020-04-03] MEDS: lisinopriL 20 MG TAB PO SCH (08:50)
[2020-04-03] MEDS: gemfibroziL 600 MG TAB PO SCH ×2 (08:50→19:27)
[2020-04-03] MEDS: DOCOSAHEXANOIC AC/EPA 1000 MG PO SCH ×3 (08:50→19:27)
[2020-04-03] MEDS: TRAMADOL HCL 50 MG TAB PO SCH ×3 (09:59→21:26)
[2020-04-03] MEDS: KETOROLAC 30 MG/ML INJ IV SCH ×3 (09:59→21:25)
[2020-04-03] MEDS: PANTOPRAZOLE 40 MG INJ IVP SCH (09:59)
[2020-04-03] MEDS: KCL 20 MEQ/100 mL IVPB 20 MEQ/100 ML BAG IV SCH ×2 (11:44→13:51)
--- NOTE | 2020-04-03 12:17 | P.PN ---
Subjective Date of Service: 04/03/20 Chief Complaint: abdominal pain Subjective: Improving (Patient is overall clinical status is improving. He still however experiencing abdominal pain. Pain regimen adjusted. He will stay in the ICU 1 more day for insulin infusion for management of hypertrigly ceridemia-induced pancreatitis.) Physical Examination - Vital Signs Temperature: 99.4 F Blood Pressure: 114/74 Pulse: 100 Respirations: 26 Pulse Ox (%): 98 - Physical Exam General: Cooperative, Mild distress Neck: Supple Respiratory: Clear to auscultation bilaterally, Normal air movement Cardiovascular: No edema, Normal pulses, Regular rate/rhythm, Normal S1 S2 Gastrointestinal: Soft and benign, Non-distended, Other (Epigastric tenderness. No guarding or distention), Tenderness Musculoskeletal: No clubbing, No swelling, No contractures, No erythema, No tenderness, No warmth Integumentary: No rashes, No breakdown, No significant lesion, No tenderness/swelling, No erythema, No warmth, No cyanosis Neurological: Normal speech, Normal tone, Sensation intact, Normal affect Assessment & Plan - Problems (Diagnosis) (1) Acute on chronic pancreatitis Current Visit: Yes Status: Acute (2) Type II diabetes mellitus Current Visit: Yes Status: Acute (3) Hypertension Current Visit: Yes Status: Acute (4) Hyperlipidemia Onset Date: 01/29/15 Current Visit: No Status: Acute (5) Hypertriglyceridemia Current Visit: Yes Status: Acute (6) Diabetes mellitus Onset Date: 01/29/15 Current Visit: No Status: Acute Qualifiers: Diabetes mellitus type: type 2 Diabetes mellitus slasher operator insulin use: without slasher operator use Diabetes mellitus complication status: with unspecified complications (7) Acute renal injury Onset Date: 04/07/18 Current Visit: No Status: Acute Physician Review Additional Text: Assessment Patient is a 39 year old male with HTN, HLD, uncontrolled type II diabetes mellitus admitted for acute on chronic pancreatitis. Found to have triglycerides > 4000. Transferred to ICU for insulin infusion. Overall, there is clinical improvement from a symptomatic standpoint. He presented with a lipase of approximately 15,000 which is trended down to ~ 1150. Acute on chronic pancreatitis Hyperlipidemia with hypertriglyceridemia HTN Type II diabetes mellitus with hyperglycemia PLAN Modify multimodal pain regimen: add scheduled tramadol, ketorolac along with p.r.n. parenteral opioids Continue insulin drip Continue checking triglycerides q 12 hours, glucose q 1 hour Discontinue insulin drip once triglycerides levels are less than 500 Use D5 half NS for IV fluid infusion Patient will be transitioned to NPH once off insulin drip. A1c of > 11 Continue lisinopril for BP control Continue NPO status
[2020-04-03 18:09] LABS: LDL, Direct 70 mg/dL (100-129)
[2020-04-03] MEDS: FENOFIBRATE 160 MG TAB PO SCH (19:27)
[2020-04-03] MEDS: SODIUM CHLORIDE 0.9% 10ML INJ IV PRN (19:28)
[2020-04-03] MEDS: ATORVASTATIN 40 MG TAB PO SCH (19:28)
[2020-04-03] MEDS ORDERED: PROMETHAZINE INJ 25 MG/ML AMP IV ONE (20:35)
[2020-04-04] MEDS: D50W 25 GM/50 ML SYRINGE/VIAL IV PRN ×2 (02:59→07:32)
[2020-04-04] MEDS: D5 0.45 NS 1,000 ML IV SCH ×2 (04:59→11:33)
[2020-04-04] MEDS: TRAMADOL HCL 50 MG TAB PO SCH ×4 (05:00→22:06)
[2020-04-04] MEDS: KETOROLAC 30 MG/ML INJ IV SCH ×4 (05:00→19:20)
[2020-04-04] MEDS: NACHLORIDE 0.45% 1,000 ML IV SCH ×4 (05:11→18:04)
[2020-04-04] MEDS: INSULIN -REGULAR HUMAN 100 UNIT in NA CHLORIDE 0.9% 100 ML IV SCH (05:11)
[2020-04-04 05:46] LABS: Absolute Lymphocytes (CBC) 1.3 K/uL (0.7-4.9); Basophils % 0.2 % (0-1.3); MPV 11.4 fL (7.6-11.3)
[2020-04-04 05:52] LABS: Potassium 3.1 mmol/L (3.5-5.1)
[2020-04-04 06:14] LABS: LDL, Direct 106 mg/dL (100-129)
[2020-04-04] MEDS: PANTOPRAZOLE 40 MG INJ IVP SCH (08:47)
[2020-04-04] MEDS: KCL 20 MEQ/100 mL IVPB 20 MEQ/100 ML BAG IV SCH ×2 (08:48→11:32)
[2020-04-04] MEDS: DOCOSAHEXANOIC AC/EPA 1000 MG PO SCH ×3 (08:48→20:14)
[2020-04-04] MEDS: lisinopriL 20 MG TAB PO SCH (08:48)
[2020-04-04] MEDS: gemfibroziL 600 MG TAB PO SCH ×2 (08:50→20:14)
--- NOTE | 2020-04-04 10:48 | P.PN ---
Subjective Date of Service: 04/04/20 Chief Complaint: abdominal pain Subjective: Improving (Continues to have mild abdominal pain but improving overall from a clinical stent) Physical Examination - Vital Signs Temperature: 97.6 F Blood Pressure: 120/69 Pulse: 77 Respirations: 16 Pulse Ox (%): 98 - Physical Exam General: Alert, Cooperative, Acute distress, Mild distress HEENT: Atraumatic, Normocephalic, EOMI Neck: Supple Respiratory: Clear to auscultation bilaterally, Normal air movement Cardiovascular: No edema, Normal pulses, Regular rate/rhythm, Normal S1 S2 Gastrointestinal: Hypoactive, Distended, Tenderness Musculoskeletal: No clubbing, No swelling, No contractures, No erythema, No tenderness, No warmth Integumentary: No rashes, No breakdown, No significant lesion, No tenderness/swelling, No erythema, No warmth, No cyanosis Neurological: Normal speech, Sensation intact, Normal affect Assessment & Plan - Problems (Diagnosis) (1) Acute on chronic pancreatitis Current Visit: Yes Status: Acute (2) Type II diabetes mellitus Current Visit: Yes Status: Acute (3) Hypertension Current Visit: Yes Status: Acute (4) Hyperlipidemia Onset Date: 01/29/15 Current Visit: No Status: Acute (5) Hypertriglyceridemia Current Visit: Yes Status: Acute (6) Diabetes mellitus Onset Date: 01/29/15 Current Visit: No Status: Acute Qualifiers: Diabetes mellitus type: type 2 Diabetes mellitus care home insulin use: without care home use Diabetes mellitus complication status: with unspecified complications (7) Acute renal injury Onset Date: 04/07/18 Current Visit: No Status: Acute Physician Review Additional Text: Assessment Patient is a 39 year old male with HTN, HLD, uncontrolled type II diabetes mellitus admitted for acute on chronic pancreatitis. Found to have t riglycerides > 4000. Transferred to ICU for insulin infusion. Overall, there is clinical improvement from a symptomatic standpoint. He presented with a lipase of approximately 15,000 which is trended down to ~ 478. This triglyceride is 923 Acute on chronic pancreatitis Hyperlipidemia with hypertriglyceridemia HTN Type II diabetes mellitus with hyperglycemia PLAN Continue with a model pain regimen: scheduled tramadol, ketorolac along with p.r.n. parenteral opioids Continue insulin drip until triglycerides less than 500 Use D5 half NS for IV fluid infusion Check triglycerides q 12 hours, glucose q 1 hour Start clear liquid diet Patient will be transitioned to NPH once off insulin drip. A1c of > 11 Continue lisinopril for BP control Patient most likely downgraded to floor status this afternoon
[2020-04-04] MEDS: HYDROMORPHONE HCL 1 MG/ML INJ IV PRN ×2 (13:44→20:15)
[2020-04-04 17:53] LABS: Potassium 3.9 mmol/L (3.5-5.1)
[2020-04-04] MEDS ORDERED: POTASSIUM CL SA 10 MEQ TAB PO ONE (19:43)
[2020-04-04] MEDS: FENOFIBRATE 160 MG TAB PO SCH (20:14)
[2020-04-04] MEDS: ATORVASTATIN 40 MG TAB PO SCH (20:14)
[2020-04-04] MEDS: INSULIN LISPRO 100 UNIT/1 ML SQ SCH (20:16)
[2020-04-05] MEDS: NACHLORIDE 0.45% 1,000 ML IV SCH ×4 (00:59→22:40)
[2020-04-05] MEDS: KETOROLAC 30 MG/ML INJ IV SCH ×4 (03:58→22:39)
[2020-04-05] MEDS: TRAMADOL HCL 50 MG TAB PO SCH ×4 (04:00→22:39)
[2020-04-05 05:42] LABS: BUN Blood Urea Nitrogen 6 mg/dL (7-18); Bicarbonate 24 mmol/L (21-32); Glucose Level 209 mg/dL (74-106); Potassium 4.3 mmol/L (3.5-5.1); Sodium Level 136 mmol/L (136-145)
--- NOTE | 2020-04-05 06:31 | EKG ---
Test Date: 2020-04-04 Test Time: 15:01:07 Reservations Manager: RADHA MEASUREMENT RESULTS: Intervals: Rate: 102 OR: 142 QRSD: 80 QT: 292 QTc: 380 [place]: P: 32 OR: 142 QRS: 11 T: 2 INTERPRETIVE STATEMENTS: Sinus tachycardia Nonspecific T wave abnormality Abnormal ECG Compared to ECG 01/28/2015 14:29:00 Sinus rhythm no longer present Sinus arrhythmia no longer present T-wave abnormality still present Electronically Signed On 04-05-20 06:30:30 CDT by Ruben Freire
[2020-04-05] MEDS ORDERED: D50W 25 GM/50 ML SYRINGE/VIAL IV PRN (07:46)
[2020-04-05] MEDS ORDERED: GLUCAGON 1 MG/VIAL IM PRN (07:46)
[2020-04-05] MEDS: NPH (HUMAN) 100 UNITS/ML INSULIN SQ SCH ×2 (08:17→17:00)
[2020-04-05] MEDS: INSULIN LISPRO 100 UNIT/1 ML SQ SCH ×4 (08:18→20:56)
[2020-04-05] MEDS: gemfibroziL 600 MG TAB PO SCH ×2 (08:18→20:57)
[2020-04-05] MEDS: lisinopriL 20 MG TAB PO SCH (08:18)
[2020-04-05] MEDS: PANTOPRAZOLE 40 MG INJ IVP SCH (08:18)
[2020-04-05] MEDS: SODIUM CHLORIDE 0.9% 10ML INJ IV PRN (08:19)
[2020-04-05] MEDS: ONDANSETRON 4 MG/2 ML VIAL IV PRN ×2 (08:19→15:59)
[2020-04-05] MEDS: HYDROMORPHONE HCL 1 MG/ML INJ IV PRN ×2 (08:19→19:39)
[2020-04-05] MEDS: DOCOSAHEXANOIC AC/EPA 1000 MG PO SCH ×3 (08:20→20:57)
--- NOTE | 2020-04-05 09:51 | P.PN ---
Subjective Date of Service: 04/05/20 Chief Complaint: abdominal pain Subjective: Improving (The is often insulin drip. He tolerated a clear liquid diet well for the most part except when she had worsening of abdominal pain after he drank carbonated soda. Mild lipase bump) Physical Examination - Vital Signs Temperature: 99.9 F Blood Pressure: 134/89 Pulse: 101 Respirations: 18 Pulse Ox (%): 100 - Physical Exam General: Alert, In no apparent distress, Cooperative HEENT: Atraumatic, Normocephalic, EOMI Neck: Supple Respiratory: Clear to auscultation bilaterally, Normal air movement Cardiovascular: No edema, Normal pulses, Regular rate/rhythm, Normal S1 S2 Gastrointestinal: Normal bowel sounds, Non-distended, Tenderness Musculoskeletal: No clubbing, No swelling, No contractures, No erythema, No tenderness, No warmth Integumentary: No rashes, No breakdown, No significant lesion, No tenderness/swelling, No erythema, No warmth, No cyanosis Neurological: Normal speech, Sensation intact, Normal affect Assessment & Plan - Problems (Diagnosis) (1) Acute on chronic pancreatitis Current Visit: Yes Status: Acute (2) Type II diabetes mellitus Current Visit: Yes Status: Acute (3) Hypertension Current Visit: Yes Status: Acute (4) Hyperlipidemia Onset Date: 01/29/15 Current Visit: No Status: Acute (5) Hypertriglyceridemia Current Visit: Yes Status: Acute (6) Diabetes mellitus Onset Date: 01/29/15 Current Visit: No Status: Acute Qualifiers: Diabetes mellitus type: type 2 Diabetes mellitus exterminator helper termite insulin use: without exterminator helper termite use Diabetes mellitus complication status: with unspecified complications (7) Acute renal injury Onset Date: 04/07/18 Current Visit: No Status: Acute Physician Review Additional Text: Assessment Patient is a 39 year old male with HTN, HLD, uncontrolled type II diabetes mellitus admitted for acute on chronic pancreatitis. Found to have triglycerides > 4000. Transferred to ICU for insulin infusion. Overall, there is clinical improvement from a symptomatic standpoint. He presented with a lipase of approximately 15,000 which is trended down to 510. This triglyceride is 313. Off INSULIN drip Acute on chronic pancreatitis Hyperlipidemia with hypertriglyceridemia HTN Type II diabetes mellitus with hyperglycemia PLAN Patient strongly advised to refrain from carbonated soft drinks Continue clear liquid diet Continue with a model pain regimen: scheduled tramadol, ketorolac along with p.r.n. parenteral opioids Start NPH at 5 units BID Continue insulin sliding scale Continue lisinopril for BP control Patient will need to be discharged on scheduled insulin. He is insulin-naive
[2020-04-05] MEDS: FENOFIBRATE 160 MG TAB PO SCH (20:57)
[2020-04-05] MEDS: ATORVASTATIN 40 MG TAB PO SCH (20:57)
[2020-04-06] MEDS: HYDROMORPHONE HCL 1 MG/ML INJ IV PRN ×2 (00:28→08:22)
[2020-04-06] MEDS: TRAMADOL HCL 50 MG TAB PO SCH ×3 (04:00→15:39)
[2020-04-06] MEDS: KETOROLAC 30 MG/ML INJ IV SCH ×3 (04:00→15:39)
[2020-04-06 04:41] LABS: BUN Blood Urea Nitrogen 8 mg/dL (7-18); Bicarbonate 26 mmol/L (21-32); Glucose Level 222 mg/dL (74-106); Potassium 4.4 mmol/L (3.5-5.1); Sodium Level 141 mmol/L (136-145)
[2020-04-06] MEDS: NACHLORIDE 0.45% 1,000 ML IV SCH ×2 (06:44→11:45)
[2020-04-06] MEDS: INSULIN LISPRO 100 UNIT/1 ML SQ SCH ×3 (07:30→16:29)
[2020-04-06] MEDS: ONDANSETRON 4 MG/2 ML VIAL IV PRN (08:22)
[2020-04-06 09:10] VITALS: O2SAT 95
[2020-04-06] MEDS: lisinopriL 20 MG TAB PO SCH (09:34)
[2020-04-06] MEDS: gemfibroziL 600 MG TAB PO SCH (09:34)
[2020-04-06] MEDS: NPH (HUMAN) 100 UNITS/ML INSULIN SQ SCH (09:35)
[2020-04-06] MEDS: DOCOSAHEXANOIC AC/EPA 1000 MG PO SCH ×2 (09:35→15:39)
[2020-04-06] MEDS: PANTOPRAZOLE 40 MG INJ IVP SCH (09:37)
[2020-04-06] MEDS ORDERED: NPH (HUMAN) 100 UNITS/ML INSULIN SQ ONE (11:30)
[2020-04-06 13:09] VITALS: BP 130/91; TEMP 98.8
--- NOTE | 2020-04-06 15:05 | P.DS ---
Admission Date: 04/01/20 Discharge Date: 04/06/20 Disposition: ROUTINE DISCHARGE Discharge Condition: GOOD Reason for Admission: abdominal pain - Problems (1) Acute on chronic pancreatitis Current Visit: Yes Status: Acute (2) Type II diabetes mellitus Current Visit: Yes Status: Acute (3) Hypertension Current Visit: Yes Status: Acute (4) Hyperlipidemia Onset Date: 01/29/15 Current Visit: No Status: Acute (5) Hypertriglyceridemia Current Visit: Yes Status: Acute (6) Diabetes mellitus Onset Date: 01/29/15 Current Visit: No Status: Acute Qualifiers: Diabetes mellitus type: type 2 Diabetes mellitus long term care social worker insulin use: without fpc use Diabetes mellitus complication status: with unspecified complications (7) Acute renal injury Onset Date: 04/07/18 Current Visit: No Status: Acute Brief History of Present Illness: Patient is a 39 year old male with a known PMH of obesity, type II diabetes mellitus (on metformin), HLD and recurrent pancreatitis. He presents today to address an acutely worsening abdominal pain that started the morning of admission. Patient is reporting a non-radiating epigastric pain associated non- bilious, non-bloody vomiting. He denies any history of excessive alcoholism. He has had 2 episodes of pancreatitis in the past. The first episode occurred 6 years ago. He underwent cholecystectomy then. This is his third episode. Hospital Course: Patient is a 9-year-old male with uncontrolled type 2 diabetes and hyperlipidemia who was admitted with CVA pancreatitis with a slight days of more than 50,000 on admission. Basic workup revealed evidence of hypertriglyceridemia with levels beyond limits. Was placed on insulin drip and transferred to the ICU for a higher level of care. His diet was slowly advanced. He will be discharged on and pH on control hyperglycemia. Hemoglobin A1c of more than 11. Vital Signs/Physical Exam: Temp Pulse Resp BP Pulse Ox 98.8 F 84 20 130/91 H 93 04/06/20 12:00 04/06/20 12:00 04/06/20 12:00 04/06/20 12:00 04/06/20 12:00 General: Alert, In no apparent distress, Cooperative HEENT: Atraumatic, Normocephalic, EOMI Neck: Supple Respiratory: Clear to auscultation bilaterally, Normal air movement Cardiovascular: No edema, Normal pulses, Regular rate/rhythm, Normal S1 S2 Gastrointestinal: Normal bowel sounds, Soft and benign, Non-distended Musculoskeletal: No clubbing, No swelling, No contractures, No erythema, No tenderness, No warmth Integumentary: No rashes, No breakdown, No significant lesion, No tenderness/swelling, No erythema, No warmth, No cyanosis Neurological: Normal speech, Sensation intact, Normal affect Laboratory Data at Discharge: WBC 9.2 K/uL (4.3-10.9) D 04/04/20 05:10 Hgb 13.9 g/dL (13.6-17.9) 04/04/20 05:10 Hct 41.0 % (39.6-49.0) 04/04/20 05:10 Plt Count 200 K/uL (152-406) 04/04/20 05:10 Sodium 141 mmol/L (136-145) 04/06/20 03:59 Potassium 4.4 mmol/L (3.5-5.1) 04/06/20 03:59 BUN 8 mg/dL (7-18) 04/06/20 03:59 Creatinine 0.91 mg/dL (0.55-1.3) 04/06/20 03:59 Glucose 222 mg/dL (74-106) H 04/06/20 03:59 Magnesium 1.9 mg/dL (1.8-2.4) 04/02/20 05:15 Total Bilirubin 0.6 mg/dL (0.2-1.0) 04/01/20 15:19 AST 33 U/L (15-37) 04/01/20 15:19 ALT 37 U/L (12-78) 04/01/20 15:19 Alkaline Phosphatase 119 U/L (45-117) H 04/01/20 15:19 Triglycerides 249 mg/dL (<150) H 04/06/20 03:59 Cholesterol 370 mg/dL (<200) H 04/01/20 20:14 LDL Cholesterol Direct 127 mg/dL (100-129) 04/04/20 17:07 HDL Cholesterol 32 mg/dL (40-60) L 04/01/20 20:14 Cholesterol/HDL Ratio 11.56 04/01/20 20:14 Amylase 86 U/L (25-115) 04/04/20 05:10 Lipase 643 U/L (73-393) H 04/06/20 11:38 Home Medications: Metformin ER [Glucophage ER*] 1,000 mg PO BID 04/06/18 Atorvastatin Calcium [Lipitor] 40 mg PO BEDTIME #60 tab 04/09/18 Docosahexanoic AC/Epa [Fish Oil 1,000 MG*] 2,000 mg PO TID cap 04/06/20 Fenofibrate 160 mg PO BEDTIME #30 04/06/20 Insulin NPH Human [Novolin N (Humulin N)*] 7 units SQ BIDWM #10 ml 04/06/20 lisinopriL [Prinivil*] 20 mg PO DAILY #30 tab 04/06/20 New Medications: Fenofibrate 160 mg PO BEDTIME #30 Insulin NPH Human [Novolin N (Humulin N)*] 7 units SQ BIDWM #10 ml lisinopriL [Prinivil*] 20 mg PO DAILY #30 tab Diet: full liquid diet
[2020-04-06] MEDS ORDERED: NPH (HUMAN) 100 UNITS/ML INSULIN SQ SCH (17:00)
== END 2020-04-06 17:15 | disposition home or self-care (01) | DRG 438 ==
LOC: ER 13:22 → ERHOLD 17:59 → 2ND 19:40 → 3RD-ICU 04-02 07:37
PROVIDERS: ADMIT Internal Medicine; ATTEND Internal Medicine
DX: K85.90 Acute pancreatitis without necrosis or infection, unspecified (principal); R65.11 Systemic inflammatory response syndrome (SIRS) of non-infectious origin with acute organ dysfunction; Z68.42 Body mass index [BMI] 45.0-49.9, adult; N17.9 Acute kidney failure, unspecified; I10 Essential (primary) hypertension; K86.1 Other chronic pancreatitis; E78.5 Hyperlipidemia, unspecified; Z79.84 Long term (current) use of oral hypoglycemic drugs; Z79.891 Long term (current) use of opiate analgesic; Z79.899 Other long term (current) drug therapy; Z90.49 Acquired absence of other specified parts of digestive tract; E66.9 Obesity, unspecified; E11.65 Type 2 diabetes mellitus with hyperglycemia; E87.5 Hyperkalemia; Z11.59 Encounter for screening for other viral diseases; E78.1 Pure hyperglyceridemia
CPT/HCPCS: 36415; 74177; 76705; 80048; 80061; 80076; 80307; 81001; 82010; 82150; 82565; 82947; 83036; 83690; 83735; 84132; 84478; 85025; 87086; 87088; 93005; 96374; 96375; 99285; C9113; J1170; J1815; J2405; J2550; J3010; J7030; J7040; J7042; J7799; Q9967; U0002

== ENCOUNTER → 2023-12-08 | Emergency (ER) | payer SELFPAY ==
[~2023-12-08] MED LIST: DIPHENHYDRAMINE 50 MG/ML VIAL ONE; KETOROLAC 30 MG/ML INJ ONE; METOCLOPRAMIDE 10 MG/2mL INJ ONE; NA CHLORIDE 0.9% 1,000 ML ONE; dexAMETHasone 10 MG/ML VIAL ONE
[2023-12-08 06:49] LABS: Absolute Lymphocytes (CBC) 1.7 K/uL (0.7-4.9); Lymphocytes % 36.3 % (15.3-44.8); MCV 88.5 fL (80-100); MPV 10.5 fL (7.6-11.3); Platelets 206 thou/uL (152-406)
[2023-12-08 07:26] LABS: Potassium 3.9 mEq/L (3.5-5.1)
--- NOTE | 2023-12-08 07:27 | EDPHYS ---
Physician Documentation [facility] Name: James Gibson Age: 43 yrs Sex: Male : 1980 Arrival Date: 12/08/2023 Time: 05:14 Bed 16 Private MD: ED Physician Josh Ring HPI: 12/08 05:45 This 43 yrs old Male presents to ER via Ambulatory with complaints of Headache.ec2 05:45 Patient arrives today for evaluation of headache. Patient reports 2 days of symptoms. ec2 States that he is having some blurred vision, left-sided head pressure. Patient reports no traumas or injuries. Reports some associated nausea and vomiting. Reports taking aspirin with minimal alleviation in symptoms. Reports no significant history of migraines.. Historical: - Allergies: 05:42 NKA; jj7 - PMHx: 05:42 Diabetes - IDDM; High Cholesterol; Pancreatitis; Hypertensive disorder; jj7 - PSHx: 05:42 None; jj7 - Immunization history:: Adult Immunizations Client reports receiving the 2nd dose of the Covid vaccine, Flu vaccine is not up to date. - Social history:: Smoking status: Reported history of juuling and/or vaping. Patient uses alcohol, occasionally. Patient/guardian denies using street drugs. ROS: 05:45 Constitutional: as per hpi ec2 Exam: 05:45 Constitutional: GEN: NAD Head: atraumatic Eyes: EOMI Ears: External ears are ec2 normal. CV: regular rate LUNGS: no respiratory distress ABD: non-distended SKIN: no evidence of rashes MSK: no evidence of trauma NEURO: moves all extremities equally, cranial nerves II through XII intact, strength intact all 4 extremities. Vital Signs: 05:30 BP 131 / 89; Pulse 60; Resp 16; Temp 98.1; Pulse Ox 97% ; Weight 104.33 kg; Height 5 jj7 ft. 5 in. ; Pain 10/10; 06:30 BP 134 / 84; Pulse 52; Resp 19; Pulse Ox 95% ; Pain 5/10; jj7 07:12 BP 121 / 74; Pulse 53; Resp 18; Pulse Ox 98% on R/A; ld1 09:19 BP 119 / 78; Pulse 55; Resp 18; Pulse Ox 98% on R/A; Pain 5/10; iw 05:30 Body Mass Index 38.27 (104.33 kg, 165.1 cm) jj7 05:30 Pain Scale: Adult jj7 06:30 Pain Scale: Adult jj7 09:19 Pain Scale: Adult iw [place] Coma Score: 09:20 Eye Response: spontaneous(4). Motor Response: obeys commands(6). Verbal Response: rn oriented(5). Total: 15. MDM: 05:21 Patient medically screened. ec2 05:45 Data reviewed: vital signs. ED course: Patient arrives today for evaluation of ec2 headache. Examination remarkable for neuro intact individual is otherwise in no acute distress with reassuring hemodynamics. Will obtain lab work, CT scan of the head and treat the patient's symptoms. Currently evaluated process intracranial mass, electrolyte disturbance, anemia.. 06:57 ED course: CT scan of the head shows no acute intracranial abnormality. . ec2 07:04 ED course: On reassessment patient with improved symptoms. Pending metabolic profile.. ec2 07:27 ED course: Metabolic profile is reassuring. Will discharge home. Return precautions ec2 given. . 07:35 ED course: On reassessment patient with complaint of diplopia, reexamination of his ec2 eyes, show monocular diplopia with the left eye. Will obtain CT angio of the head and neck to evaluate for dissection as well as aneurysm. Patient still with marked improvement in his headache symptoms.. 07:35 ED course: Will sign patient out to oncoming physician with pending imaging.. ec2 07:35 Transition of care: After a detail discussion of the patient's case, care is ec2 transferred to Josh Ring MD. 07:43 ED course: Patient signed out to me by Dr. Viveros, reports was about to discharge home rn as patient overall felt better when patient clarified his blurred vision has more of a diplopia. Dr. Viveros added CT angio of the head and the neck as well as MRI brain. His plan was to discharge home with neuro follow-up if all imaging was negative. Symptoms present for 2 days.. 09:20 Differential diagnosis: cluster headache, intracerebral hemorrhage, migraine, neoplasm, rn tension headache, vasomotor headache, Vertebral or carotid dissection, vasospasm, cranial nerve palsy. Counseling: I had a detailed discussion with the patient and/or guardian regarding the historical points, exam findings, and any diagnostic results supporting the discharge/admit diagnosis, lab results, radiology results, the need for outpatient follow up, to return to the emergency department if symptoms worsen or persist or if there are any questions or concerns that arise at home. ED course: No acute findings and CT angio of the head and neck. MRI brain negative for acute findings. No evidence of LVO. No brain mass identified. MRI negative for stroke will discharge home with neurology follow-up and given return precautions.. 12/08 05:45 Order name: CBC with Diff; Complete Time: 06:59 ec2 12/08 05:45 Order name: BMP; Complete Time: 07:35 ec2 12/08 05:45 Order name: CT Head Brain wo Cont ec2 12/08 07:35 Order name: CT Head Angio; Complete Time: 08:55 ec2 12/08 07:35 Order name: CT Neck Angio; Complete Time: 08:55 ec2 12/08 07:37 Order name: MRI - Brain Wo Cont; Complete Time: 08:55 ec2 Administered Medications: 06:00 Drug: NS 0.9% IV 1000 ml IV at 1 bolus Per protocol; 1000 mL bolus Route: IV; Rate: 1 jj7 bolus; Site: left antecubital; 09:00 Follow up: Response: No adverse reaction; IV Status: Completed infusion; IV Intake: iw 1000ml 06:00 Drug: metoCLOPramide IVP 10 mg IVP once; over 1 to 2 minutes Route: IVP; Site: left j7 antecubital; 09:54 Follow up: Response: No adverse reaction iw 06:00 Drug: diphenhydrAMINE IVP 25 mg IVP once Route: IVP; Site: left antecubital; jj7 09:54 Follow up: Response: No adverse reaction iw 06:00 Drug: Ketorolac IVP 15 mg IVP once Route: IVP; Site: left antecubital; jj7 09:54 Follow up: Response: No adverse reaction iw 06:00 Drug: Decadron - Dexamethasone IVP 10 mg IVP once Route: IVP; Site: left antecubital; jj7 09:54 Follow up: Response: No adverse reaction iw Disposition Summary: 12/08/23 09:21 Discharge Ordered Notes: Location: Home(02/27/24 09:21) rn Condition: Stable(12/08/23 09:21) rn Diagnosis - Headache(12/08/23 09:21) rn Followup: rn - With: Gera Monge MD - When: 5 - 6 days - Reason: Recheck today's complaints, Re-evaluation by your physician Discharge Instructions: - Discharge Summary Sheet rn - General Headache Without Cause rn Forms: - Medication Reconciliation Form rn - Thank You Letter rn - Antibiotic rn behavioral health - Prescription Opioid Use rn - Patient Portal Instructions rn - Leadership Thank You Letter rn Signatures: Dispatcher [employer] Josh Spann MD MD rn Johnson, Juwairiyah, RN RN jj7 Rajinder Viveros MD MD ec2 Corazon Brandt RN iw Corrections: (The following items were deleted from the chart) : 07:27 Home ec2 ec2 07: 07:27 Stable ec2 ec2 07: 07:27 Headache ec2 ec2
--- NOTE | 2023-12-08 07:27 | ER ---
Nurse's Notes [facility] Name: James Gibson Age: 43 yrs Sex: Male : 1980 Arrival Date: 12/08/2023 Time: 05:14 Bed 16 Private MD: Diagnosis: Headache Presentation: 12/08 05:30 Chief complaint: Patient states: MIGRAINE X2 DAYS. Coronavirus screen: At this time, j the client does not indicate any symptoms associated with coronavirus-19. Ebola Screen: No symptoms or risks identified at this time. Initial Sepsis Screen: Does the patient meet any 2 criteria? No. Patient's initial sepsis screen is negative. Does the patient have a suspected source of infection? No. Patient's initial sepsis screen is negative. Risk Assessment: Do you want to hurt yourself or someone else? Patient reports no desire to harm self or others. Onset of symptoms was December 07, 2003. 05:30 Method Of Arrival: Ambulatory [facility] 05:30 Acuity: MARVEL 5 jj7 Triage Assessment: 05:30 Headache History: Denies prior headaches. General: Appears in no apparent distress. jj7 uncomfortable, Behavior is calm, cooperative, appropriate for age. Pain: Complains of pain in left eye, left adventist, right frontal area, right side of the back of head, right temporal area, right occipital area, right adventist, right eye, right base of the skull and scalp Pain currently is 10 out of 10 on a pain scale. Pain began 2-3 days ago. Also complains of no other associated symptoms. Neuro: No deficits noted. Reports headache in left frontal area, occipital area. Historical: - Allergies: 05:42 NKA; jj7 - PMHx: 05:42 Diabetes - IDDM; High Cholesterol; Pancreatitis; Hypertensive disorder; jj7 - PSHx: 05:42 None; jj7 - Immunization history:: Adult Immunizations Client reports receiving the 2nd dose of the Covid vaccine, Flu vaccine is not up to date. - Social history:: Smoking status: Reported history of juuling and/or vaping. Patient uses alcohol, occasionally. Patient/guardian denies using street drugs. Screenin:30 [facility] ED Fall Risk Assessment (Adult) History of falling in the last 3 months, jj7 including since admission No falls in past 3 months (0 pts) Confusion or Disorientation No (0 pts) Intoxicated or Sedated No (0 pts) Impaired Gait No (0 pts) Mobility Assist Device Used No (0 pt) Altered Elimination No (0 pt) Score/Fall Risk Level 0 - 2 = Low Risk Oriented to surroundings, Maintained a safe environment, Educated pt \T\ family on fall prevention, incl call for assistance when getting out of bed. Abuse screen: Denies threats or abuse. Nutritional screening: No deficits noted. Tuberculosis screening: No symptoms or risk factors identified. Assessment: 05:30 Pain: Pain currently is 10 out of 10 on a pain scale. jj7 05:30 Reassessment: SEE TRIAGE ASSESSEMENT. jj7 09:19 Reassessment: Patient appears in no apparent distress at this time. Patient and/or iw family updated on plan of care and expected duration. Pain level reassessed. Patient is alert, oriented x 3, equal unlabored respirations, skin warm/dry/pink. Pain: Complains of pain in head Pain currently is 5 out of 10 on a pain scale. Quality of pain is described as aching. Vital Signs: 05:30 BP 131 / 89; Pulse 60; Resp 16; Temp 98.1; Pulse Ox 97% ; Weight 104.33 kg; Height 5 jj7 ft. 5 in. ; Pain 10/10; 06:30 BP 134 / 84; Pulse 52; Resp 19; Pulse Ox 95% ; Pain 5/10; jj7 07:12 BP 121 / 74; Pulse 53; Resp 18; Pulse Ox 98% on R/A; ld1 09:19 BP 119 / 78; Pulse 55; Resp 18; Pulse Ox 98% on R/A; Pain 5/10; iw 05:30 Body Mass Index 38.27 (104.33 kg, 165.1 cm) jj7 05:30 Pain Scale: Adult jj7 06:30 Pain Scale: Adult jj7 09:19 Pain Scale: Adult iw Wade Coma Score: 09:20 Eye Response: spontaneous(4). Motor Response: obeys commands(6). Verbal Response: rn oriented(5). Total: 15. ED Course: 05:20 Patient arrived in ED. ec2 05:21 Rajinder Viveros MD is Attending Physician. ec2 05:30 Arm band placed on right wrist. Patient placed in an exam room, on a stretcher. jj7 05:30 Patient has correct armband on for positive identification. Bed in low position. Call jj7 light in reach. Door closed. Lights dimmed. 05:40 Sudeep Robertson, RN is Primary Nurse. jj7 05:41 Triage completed. jj7 06:00 Inserted saline lock: 20 gauge in left antecubital area, using aseptic technique. Blood jj7 collected. 06:16 CT Head Brain wo Cont In Process Unspecified. EDMS 07:43 Attending Physician role handed off by Rajinder Viveros MD rn 07:43 Josh Ring MD is Attending Physician. rn 08:23 CT Head Angio In Process Unspecified. EDMS 08:23 CT Neck Angio In Process Unspecified. EDMS 08:29 MRI - Brain Wo Cont In Process Unspecified. EDMS 08:55 Primary Nurse role handed off by Sudeep Robertson RN bd 09:06 Corazon Brandt, KT is Primary Nurse. iw 09:21 Gera Monge MD is Referral Physician. rn 09:53 Provided Education on: discharge instructions. iw 09:53 No provider procedures requiring assistance completed. IV discontinued, intact, iw bleeding controlled. Administered Medications: 06:00 Drug: NS 0.9% IV 1000 ml IV at 1 bolus Per protocol; 1000 mL bolus Route: IV; Rate: 1 jj7 bolus; Site: left antecubital; 09:00 Follow up: Response: No adverse reaction; IV Status: Completed infusion; IV Intake: iw 1000ml 06:00 Drug: metoCLOPramide IVP 10 mg IVP once; over 1 to 2 minutes Route: IVP; Site: left j antecubital; 09:54 Follow up: Response: No adverse reaction iw 06:00 Drug: diphenhydrAMINE IVP 25 mg IVP once Route: IVP; Site: left antecubital; jj7 09:54 Follow up: Response: No adverse reaction iw 06:00 Drug: Ketorolac IVP 15 mg IVP once Route: IVP; Site: left antecubital; jj7 09:54 Follow up: Response: No adverse reaction iw 06:00 Drug: Decadron - Dexamethasone IVP 10 mg IVP once Route: IVP; Site: left antecubital; jj7 09:54 Follow up: Response: No adverse reaction iw Medication: 05:30 VIS not applicable for this client. jj7 Intake: 09:00 IV: 1000ml; Total: 1000ml. iw Outcome: 07:27 Discharge ordered by . ec2 09:21 Discharge ordered by . rn 09:53 Discharged to home ambulatory, with friend, iw 09:53 Condition: stable 09:53 Discharge instructions given to patient, Instructed on discharge instructions, follow up and referral plans. Demonstrated understanding of instructions, follow-up care, 09:54 Patient left the ED. iw Signatures: Dispatcher [employer] EDMS Ankita Arias Irene, RN RN iw Josh Ring MD MD rn Sims, Lauren, RN RN ld1 Sudeep Robertson RN RN jj7 Rajinder Viveros MD MD ec2
--- NOTE | 2023-12-08 08:35 | RAD REPORT ---
EXAM DESCRIPTION: CTHead angio12/08/2023 8:21 am CLINICAL HISTORY: Diplopia COMPARISON: none TECHNIQUE: 100 cc Isovue [address] angiogram of the head was obtained. 3D MIPS reconstruction performed. All CT scans are performed using dose optimization technique as appropriate and may include automated exposure control or mA/KV adjustment according to patient size. FINDINGS: The distal internal carotid, basilar, anterior cerebral, middle cerebral and posterior cer ebral arteries do not demonstrate a significant stenosis An aneurysm is not seen No large vessel occlusion IMPRESSION: No significant abnormality is displayed
--- NOTE | 2023-12-08 08:39 | RAD REPORT ---
EXAM DESCRIPTION: Alena Angio12/08/2023 8:21 am CLINICAL HISTORY: Diplopia COMPARISON: None TECHNIQUE: 100 cc Isovue [address] angiogram of the neck was obtained. 3D MIPS reconstruction performed. All CT scans are performed using dose optimization technique as appropriate and may include automated exposure control or mA/KV adjustment according to patient size. FINDINGS: Visualized aortic arch and great vessels unremarkable Common carotid, internal carotid and external carotid arteries bilaterally unremarkable Vertebral arteries unremarkable No dissection is seen. No high-grade stenosis [place]et crieria Mild stenosis 0 to 49 % Moderate stenosis 50-69% Severe stenosis 70-99% IMPRESSION: No significant abnormality is displayed
--- NOTE | 2023-12-08 08:47 | RAD REPORT ---
EXAM DESCRIPTION: MRI - Brain Wo Cont - 12/08/2023 8:38 am CLINICAL HISTORY: Diplopia COMPARISON: Head CT December 08, 2028 TECHNIQUE: Axial, sagittal, and coronal magnetic resonance images of the brain were obtained. FINDINGS: No abnormal signal within the brain Diffusion-weighted/ADC mapping does not reveal evidence of acute infarction. The ventricles are normal caliber. An extra-axial fluid collection is not noted. Fluid within the sinuses/mastoids is not seen IMPRESSION: No acute intracranial abnormality noted
[2023-12-08 10:05] VITALS: BP 119/78; TEMP 98.1; O2SAT 98
--- NOTE | 2023-12-08 11:46 | RAD REPORT ---
EXAM DESCRIPTION: CT - Head Brain Wo Cont - 12/08/2023 7:09 am CLINICAL HISTORY: CORNELL COMPARISON: None available TECHNIQUE: Axial CT of the head obtained from the skull apex to the skull base without contrast. Thi s exam was performed according to our departmental dose-optimization program, which includes automate d exposure control, adjustment of the mA and/or kV according to patient size and/or use of iterative reconstruction technique. FINDINGS: No acute intracranial hemorrhage identified. No mass, mass effect, shift of the midline, a bnormal extra-axial fluid collection or CT evidence of acute ischemic change identified. The ventricu lar system is unremarkable. No acute abnormalities of the supratentorial white matter, basal gangli a, cerebellum, or brainstem. Minimal mucosal thickening of the paranasal sinuses. Mastoid air cells are well aerated. No skull fra cture identified. Visualized orbits and globes are unremarkable. IMPRESSION: 1. No acute intracranial abnormality identified. Electronically signed by: Cullen Fournier DO 12/08/2023 06:40 AM RN FAMILY M Due to temporary technical issues with the PACS/Fluency reporting system, reports are being signed by the in house radiologists without review as a courtesy to insure prompt reporting. The interpreting radiologist is fully responsible for the content of the report.
== END ==
LOC: ER 05:14
DX: R51.9 Headache, unspecified (principal); E11.9 Type 2 diabetes mellitus without complications; I10 Essential (primary) hypertension
CPT/HCPCS: 36415; 70450; 70496; 70498; 70551; 80048; 85025; J1100; J1200; J2765; J7030; Q9967